=== PATIENT | female | born 1980 | race American Indian/Alaskan Native ===

== ENCOUNTER 2017-03-27 19:52 | Emergency (ER) | payer MEDICARE ==
[2017-03-27 20:23] VITALS: O2SAT 96
--- NOTE | 2017-03-27 20:49 | C.PDOC ---
History Of Present Illness Patient is a 37 y/o female, with a Hx of wheezing, who presents to the ED with a complaint of SOB. Patient reports symptoms worsened today and notes using an inhaler with no relief. No other physical complaints at this time. Time Seen by Provider: 03/27/17 20:48 Chief Complaint (Nursing): Respiratory Distress History Per: Patient History/Exam Limitations: no limitations Onset/Duration Of Symptoms: Hrs (today) Current Symptoms Are (Timing): Still Present Pain Scale Rating Of: 3 Recent travel outside of the [place]: No Additional History Per: Patient Past Medical History Reviewed: Historical Data, Nursing Documentation, Vital Signs Vital Signs: Last Vital Signs Temp 97.7 F 03/27/17 20:20 Pulse 108 H 03/27/17 20:20 Resp 16 03/27/17 20:53 BP 141/87 03/27/17 20:20 Pulse Ox 96 03/27/17 23:00 - Medical History PMH: Asthma Surgical History: No Surg Hx Family History: States: No Known Family Hx - Social History Hx Alcohol Use: No Hx Substance Use: No - Immunization History Hx Tetanus Toxoid Vaccination: No Hx Influenza Vaccination: No Hx Pneumococcal Vaccination: No Review Of Systems Constitutional: Negative for: Fever, Chills ENT: Negative for: Throat Pain Cardiovascular: Negative for: Chest Pain Respiratory: Positive for: Shortness of Breath, Wheezing Gastrointestinal: Negative for: Nausea Genitourinary: Negative for: Dysuria Musculoskeletal: Negative for: Back Pain Skin: Negative for: Rash Neurological: Negative for: Weakness Psych: Negative for: Anxiety Physical Exam - Physical Exam Appears: Well, Non-toxic, No Acute Distress Skin: Normal Color, Warm, Dry Head: Normacephalic Eye(s): bilateral: Normal Inspection Oral Mucosa: Moist Neck: Supple Chest: Symmetrical Cardiovascular: Rhythm Regular, No Murmur Respiratory: No Rales, No Rhonchi, No Stridor, Wheezing (scattered), Other ( speaking in complete sentences) Gastrointestinal/Abdominal: Soft, No Tenderness Back: Normal Inspection Pulses: Left Dorsalis Pedis: Normal, Right Dorsalis Pedis: Normal Neurological/Psych: Oriented x3, Normal Speech, Normal Cognition ED Course And Treatment O2 Sat by Pulse Oximetry: 96 Pulse Ox Interpretation: Normal Progress Note: Plan: Albuterol, Prednisone, and Nebulizer treatment administered. Reevaluation Time: 23:00 Reassessment Condition: Improved Disposition Counseled Patient/Family Regarding: Studies Performed, Diagnosis, Need For Followup, Rx Given - Disposition Referrals: [facility] [Outside] [facility] [Outside] Disposition: HOME/ ROUTINE Disposition Time: 20:48 Condition: FAIR Prescriptions: Albuterol HFA [Ventolin HFA 90 mcg/actuation (8 g)] 2 puff IH [id number] #1 puff Prednisone [Deltasone] 20 mg PO DAILY #5 tablet Instructions: Asthma (DC) Forms: [employer] (Malawian) - Clinical Impression Clinical Impression: Exacerbation of asthma - Scribe Statement The provider has reviewed the documentation as recorded by the Scribe Emily Gaspar All medical record entries made by the Scribe were at my direction and personally dictated by me. I have reviewed the chart and agree that the record accurately reflects my personal performance of the history, physical exam, medical decision making, and the department course for this patient. I have also personally directed, reviewed, and agree with the discharge instructions and disposition.
[2017-03-27] MEDS: Albuterol-Ipratrop 3 mg / 0.5 (3 ml) UD IH SCH ×3 (21:02→21:28)
[2017-03-27] MEDS ORDERED: Albuterol-Ipratrop 3 mg / 0.5 (3 ml) UD ONE ×2 (21:07→21:19)
[2017-03-27 23:03] VITALS: BP 125/79; PULSE 104; TEMP 97.9
[2017-03-27 23:08] VITALS: RESP 18
== END 2017-03-27 23:16 | disposition home or self-care (01) ==
LOC: C.ER 19:52
DX: J45.901 Unspecified asthma with (acute) exacerbation (principal)

== ENCOUNTER 2017-11-07 17:40 | Inpatient (IN) | payer MEDICARE ==
[2017-11-07] MEDS: Albuterol-Ipratrop 3 mg / 0.5 (3 ml) UD IH SCH ×2 (18:40→18:52)
[2017-11-07] MEDS ORDERED: Albuterol-Ipratrop 3 mg / 0.5 (3 ml) UD ONE (18:42)
[2017-11-07 20:11] LABS: BASO % 0.7 % (0.0-2.0); EOS # 0.1 K/uL (0.0-0.7); EOS % 1.5 % (0.0-4.0); HEMOGLOBIN 12.4 g/dL (11.0-16.0); LYMPH # 1.5 K/uL (1.0-4.3); LYMPH % 22.4 % (20.0-40.0); MEAN CELL VOLUME 78.2 fL (81.0-99.0); MEAN CORPUSCULAR HEMOGLOBIN 25.3 pg (27.0-31.0); MEAN CORPUSCULAR HGB CONC 32.4 g/dL (33.0-37.0); MEAN PLATELET VOLUME 10.5 fL (7.2-11.7); MONO # 0.5 K/uL (0.0-0.8); MONO % 7.7 % (0.0-10.0); NEUT # 4.5 K/uL (1.8-7.0); NEUT % 67.7 % (50.0-75.0); RBC 4.9 Mil/uL (3.80-5.20); RED CELL DISTRIBUTION WIDTH 15.2 % (11.5-14.5); WHITE BLOOD COUNT 6.6 K/uL (4.8-10.8)
[2017-11-07 20:20] LABS: SQUAMOUS EPITHIAL 7 /hpf (0-5); URINE BACTERIA RARE (<OCC); URINE BILIRUBIN NEGATIVE (NEGATIVE); URINE BLOOD NEGATIVE (NEGATIVE); URINE CLARITY Hazy (Clear); URINE COLOR Yellow (YELLOW); URINE GLUCOSE (UA) NORMAL (Normal); URINE LEUKOCYTE ESTERASE NEG Leu/uL (Negative); URINE PROTEIN NEGATIVE (NEGATIVE); URINE UROBILINOGEN NORMAL mg/dL (0.2-1.0)
[2017-11-07 20:22] LABS: HCG,QUALITATIVE URINE NEGATIVE (NEGATIVE)
[2017-11-07 20:24] LABS: GFR AFRICAN-AMERICAN > 60; GFR NON-AFRICAN AMERICAN > 60
[2017-11-07 20:25] LABS: INR 1.3
[2017-11-07 20:33] LABS: BARBITURATES, UR NEGATIVE (NEGATIVE); BENZODIAZEPINES, UR NEGATIVE (NEGATIVE); OPIATES, UR NEGATIVE (NEGATIVE); PHENCYCLIDINE, UR NEGATIVE (NEGATIVE)
[2017-11-07 20:37] LABS: B-TYPE NATRIURETIC PEPTIDE 4760 pg/mL (0-450)
[2017-11-07 20:42] LABS: ALB/GLOB RATIO 1.3 (1.0-2.1); ALBUMIN 4.1 g/dL (3.5-5.0); ALT/SGPT 120 U/L (9-52); AST/SGOT 95 U/L (14-36); BLOOD UREA NITROGEN 9 mg/dL (7-17)
--- NOTE | 2017-11-07 21:31 | C.PDOC ---
Time Seen by Provider: 11/07/17 18:16 Chief Complaint (Nursing): Shortness Of Breath History Per: Patient Onset/Duration Of Symptoms: Days (about 2 weeks) Current Symptoms Are (Timing): Still Present Exacerbating Factor(s): Laying Flat Current Respiratory Medications: See Home Med List Severity: Moderate Associated Symptoms: Productive Cough Additional History Per: Prior Records Past Medical History Reviewed: Historical Data, Nursing Documentation, Vital Signs Vital Signs: Last Vital Signs Temp 97.8 F 11/07/17 17:44 Pulse 108 H 11/07/17 21:25 Resp 22 11/07/17 21:25 BP 112/92 H 11/07/17 21:25 Pulse Ox 95 11/07/17 21:32 - Medical History PMH: Asthma Family History: States: Unknown Family Hx - Social History Hx Tobacco Use: No Hx Alcohol Use: Yes Hx Substance Use: No - Immunization History Hx Tetanus Toxoid Vaccination: No Hx Influenza Vaccination: No Hx Pneumococcal Vaccination: No Review Of Systems Except As Marked, All Systems Reviewed And Found Negative. Constitutional: Negative for: Fever Cardiovascular: Positive for: Orthopnea Respiratory: Positive for: Cough, Shortness of Breath, Sputum. Negative for: Hemoptysis Gastrointestinal: Negative for: Abdominal Pain Musculoskeletal: Negative for: Leg Pain Skin: Negative for: Rash Neurological: Negative for: Weakness, Numbness Physical Exam - Physical Exam Appears: Non-toxic, No Acute Distress Skin: Normal Color, Warm, Dry, No Rash Head: Atraumatic, Normacephalic Eye(s): bilateral: Normal Inspection, PERRL, EOMI Neck: Normal ROM, Supple Cardiovascular: Rhythm Regular Respiratory: No Accessory Muscle Use, Wheezing Gastrointestinal/Abdominal: Soft, No Tenderness Extremity: Normal ROM, No Calf Tenderness Neurological/Psych: Oriented x3, Normal Motor, Normal Sensation ED Course And Treatment - Laboratory Results Result Diagrams: 11/07/17 19:58 11/07/17 19:58 Lab Interpretation: Abnormal Interpretation Of Abnormal: Elevated BNP Urine POC: Negative ECG: Interpreted By Me, Viewed By Me ECG Rhythm: Sinus Tachycardia, PVC, Nonspecific Changes Rate From EC O2 Sat by Pulse Oximetry: 95 Pulse Ox Interpretation: Normal - Radiology CXR: Interpreted by Me, Viewed By Me CXR Interpretation: Yes: Cardiomegaly Progress - Interventions Interventions:: Observation, Oxygen - Medications Administered Oral: Aspirin, Corticosteriod Inhaled nebulized: Anticholinergic, Beta-2 agonist Intravenous: Diuretic - Data Reviewed Data Reviewed: Lab, Diagnostic imaging, EKG, Old records - Patient Status Patient status: Partially improved - Continuity of Care Discussed patient case with:: Patient, ED Nurse, On-call PMD-pt unassigned - Patient Plan Patient Plan: Admission, Telemetry Disposition Discussed With : León Stark Comment: He accepted pt on his service and gave admitting orders to the nurse. Doctor Will See Patient In The: Hospital Counseled Patient/Family Regarding: Studies Performed, Diagnosis - Disposition Disposition: HOSPITALIZED Disposition Time: 21:37 Condition: GUARDED - Clinical Impression Clinical Impression: New onset of congestive heart failure
--- NOTE | 2017-11-08 07:16 | CP.PCM.PN ---
Subjective - Date & Time of Evaluation Date of Evaluation: 11/08/17 Time of Evaluation: 07:16 - Subjective Subjective: Internal Medicine Progress Note - Dr Stark Service Patient seen and examined at bedside. Per nursing no acute events overnight. Patient was admitted for progressive shortness of breath. States that she has been experiencing wheezing, cough and right sided chest tightness after ambulating. Patient has been using her albuterol inhaler and nebulizer with minimal relief in symptoms. Currently patient is still short of breath, offers no other complaints at this time. Denies headaches, dizziness, cp, palpitations , abdominal pain, urinary symptoms. Objective - Vital Signs/Intake and Output Vital Signs (last 24 hours): Temp Pulse Resp BP Pulse Ox 98.1 F 94 H 18 116/70 97 11/08/17 04:00 11/08/17 06:01 11/08/17 06:01 11/08/17 06:01 11/08/17 06:01 - Medications Medications: Current Medications Aspirin (Ecotrin) 325 mg PO DAILY YANIRA Enalapril Maleate (Vasotec) 2.5 mg PO BID YANIRA - Labs Labs: 11/07/17 19:58 11/07/17 19:58 PT 14.0 SECONDS (9.7-12.2) H 11/07/17 19:58 INR 1.3 11/07/17 19:58 APTT 19 SECONDS (21-34) L 11/07/17 19:58 - Additional Findings Additional findings: - Constitutional Appears: Non-toxic, No Acute Distress - Head Exam Head Exam: ATRAUMATIC, NORMAL INSPECTION, NORMOCEPHALIC - Eye Exam Eye Exam: EOMI, Normal appearance - ENT Exam ENT Exam: Mucous Membranes Moist - Respiratory Exam Respiratory Exam: Wheezes, NORMAL BREATHING PATTERN - Cardiovascular Exam Cardiovascular Exam: Tachycardia, REGULAR RHYTHM, +S1, +S2 - GI/Abdominal Exam GI & Abdominal Exam: Normal Bowel Sounds, Soft. absent: Tenderness - Extremities Exam Extremities exam: Positive for: normal inspection. Negative for: pedal edema, tenderness - Neurological Exam Neurological exam: Alert, Oriented x3 - Psychiatric Exam Psychiatric exam: Normal Affect, Normal Mood - Skin Skin Exam: Intact, Normal Color, Warm Assessment and Plan - Assessment and Plan (Free Text) Assessment: A/P: Patient is a 37 year old female with past medical history of asthma, depression presented to the ED for shortness of breath, cough. Acute on Chronic Systolic Heart Failure -Stable, afebrile -Will monitor on telemetry -CXR showed severe cardiomegaly with mild pulmonary venous congestion; no active disease -EKG showed sinus tachycardia with occasional PVCs -Pro BNP on admission was 4760 -Echo showed EF 20-25%, dilated cardiomyopathy, official report pending -Patient for cardiac cath on Saturday with Dr Burnett -NPO after midnight on Saturday11/10/17 -Continue Aspirin 81mg PO daily -Started on Lasix 20mg IVP BID, Lopressor 12.5mg PO BID, Enalapril 2.5mg PO BID , Crestor 5mg PO HS -F/U HgA1C, lipid panel, TSH/Free T4 -UTOX negative -Patient for life vest evaluation -Cardiology on consult, help appreciated -Daily weights, Strict I/Os Asthma -Duonebs Q6H prn shortness of breath Elevated LFTs -AST/ALT: 95/120 -Acute Hepatitis panel is negative -Could be elevated secondary to venous congestion -Drinks 1-2 glasses of wine monthly, denies recent tylenol use -Continue to monitor, avoid nephrotoxic agents GI/DVT ppx: -Protonix 40mg IVP daily -Lovenox 40mg SC daily Plan discussed with Dr Lincoln Ochoa DO PGY-2
[2017-11-08 08:11] LABS: BASO % 0.3 % (0.0-2.0); EOS % 0.4 % (0.0-4.0); HEMOGLOBIN 12.1 g/dL (11.0-16.0); LYMPH # 0.9 K/uL (1.0-4.3); LYMPH % 10.2 % (20.0-40.0); MEAN CELL VOLUME 77.2 fL (81.0-99.0); MEAN CORPUSCULAR HEMOGLOBIN 25.8 pg (27.0-31.0); MEAN CORPUSCULAR HGB CONC 33.5 g/dL (33.0-37.0); MEAN PLATELET VOLUME 10.1 fL (7.2-11.7); MONO # 0.4 K/uL (0.0-0.8); MONO % 4.3 % (0.0-10.0); NEUT # 7.6 K/uL (1.8-7.0); NEUT % 84.8 % (50.0-75.0); NRBC % 0.1 % (0.0-2.0); RBC 4.69 Mil/uL (3.80-5.20); RED CELL DISTRIBUTION WIDTH 14.7 % (11.5-14.5); WHITE BLOOD COUNT 8.9 K/uL (4.8-10.8)
[2017-11-08 08:26] LABS: ALB/GLOB RATIO 1.3 (1.0-2.1); ALBUMIN 4.3 g/dL (3.5-5.0); ALT/SGPT 147 U/L (9-52); AST/SGOT 99 U/L (14-36); BLOOD UREA NITROGEN 11 mg/dL (7-17); GFR AFRICAN-AMERICAN > 60; GFR NON-AFRICAN AMERICAN > 60; HDL CHOLESTEROL 31 mg/dL (30-70)
--- NOTE | 2017-11-08 08:29 | RAD ---
HISTORY: COMPARISON: No prior. TECHNIQUE: Chest PA and lateral FINDINGS: LINES AND TUBES: None. LUNG AND PLEURA: The lungs are well inflated. There is mild pulmonary venous congestion. No pleural effusion or pneumothorax. HEART AND MEDIASTINUM: There is severe cardiomegaly. The hilar and mediastinal contours are within normal limits. SKELETAL STRUCTURES: The bony structures are within normal limits for the patient's age. VISUALIZED UPPER ABDOMEN: Normal. OTHER FINDINGS: None. IMPRESSION: No active pulmonary disease. Severe cardiomegaly and mild pulmonary venous congestion.
[2017-11-08 08:36] LABS: LDL CHOLESTEROL 116 mg/dL (0-129)
[2017-11-08] MEDS ORDERED: Aspirin 325 mg EC Tablets PO SCH (10:00)
[2017-11-08 11:25] LABS: HEPATITIS B SURFACE AG Negative (NEGATIVE)
[2017-11-08 11:31] LABS: HEPATITIS A IGM NEGATIVE (NEGATIVE); HEPATITIS B CORE AB NEGATIVE (NEGATIVE)
[2017-11-08 11:42] LABS: HEPATITIS C ANTIBODY NEGATIVE (NEGATIVE)
[2017-11-08] MEDS: Enoxaparin 40 mg Syringe SC SCH (14:17)
--- NOTE | 2017-11-08 15:04 | CP.PCM.CON ---
Addendum entered and electronically signed by Harper Atkinson 11/08/17 15:41 : Acute on Chronic Systolic CHF ECHO: dilated cardiomyopathy, Ejection Fraction: 20-25% start Lasix 20mg ivp BID ASA 81mg po daily Lopressor 12.5mg po BID hold if systolic <100, HR <60 Crestor 5mg po HS Enalapril 2.5mg po BID for cardiac cath on Saturday for life vest evaluation Original Note: <Harper Atkinson - Last Filed: 11/08/17 14:53> History of Present Illness - History of Present Illness History of Present Illness: Patient is 37 year old, female, with a past medical history of depression, asthma, and uveitis, who is being evaluated for complaints of shortness of breath with associated 8x post-tussive emesis. She describes that symptoms began to present the week of October 27, 2017 while she was in [place]. She began to experience wheezing, cough, and right sided chest tightness after walking a block. Symptoms were similar to her prior asthma exacerbations. Patient notes that humidity is a trigger for her asthma, so she was not concerned. She returned to [place] on November 03, 2017, and symptoms were not occurring as frequently, but have continued to occur. She has been using her rescue inhaler (2 puffs 6 times a day) and her nebulizer, but has not been experiencing relief like she normally does. Usually she only has to use her rescue inhaler once every two weeks. Symptoms worsened on November 05, 2017 in the evening when she describes gasping for air, having cough spasms, post-tussive vomiting, excessive drooling, and 8/ 10 mid-sternal/left sided chest tightness and pressure. Cough worsens with deep breaths and exertion, such as walking to the bathroom. Patient describes that she would have chest tightness, then would have a cough spasm and post-tussive emesis. Chest tightness would resolve after coughing, but it would feel like heavy chest pressure. She also felt extremely hot but denies diaphoresis, extremity numbness, tingling. This was extremely different than her prior asthma exacerbations, which prompted her to present to the ED. Cxray showed cardiomegaly. Patient notes that she has had imaging performed in the past, but has never been told that she had any abnormalities with her heart. She was admitted, and started on Lasix. She notes that cough and shortness of breath has persisted. Patient denies fever, chills, diarrhea, abdominal pain, loss of consciousness, lower extremity edema. No other acute complaints at this time. Pt states that in 2008, she began to notice floaters and debris in her eye. She also felt like her joints were locking. She was seen by her PCP, was diagnosed with RA and started on Methotrexate and steroids. She also was worked up for sarcoidosis. However, in 2009 she was told that her symptoms were due to uveitis and she did not have RA. She was given eye drops and prednisone for symptoms, however she has not taken prednisone in >2 years because it was not covered by insurance. 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) , Cataracts (2013, 2015 ) Social History: non-smoker, lives with smokers, 1 glass of wine 1-2 times per month, no drug use, lives with friends, employed Home Meds: nebulizer, rescue inhaler, 2 eye drops for uveitis but does not remember names, prednisone (has not taken for >2 months) Allergies: NKDA, seasonal Famhx: Maternal grandfather: CHF, renal failure, CABG, DM; Mother: HTN, Renal failure, CHF Review of Systems - Constitutional Constitutional: absent: Chills, Fever - EENT Eyes: Spots in Vision - Cardiovascular Cardiovascular: Chest Pain - Respiratory Respiratory: Cough, Dyspnea, Dyspnea on Exertion, Wheezing - Gastrointestinal Gastrointestinal: Abdominal Pain, Nausea, Vomiting. absent: Constipation, Diarrhea - Genitourinary Genitourinary: absent: Difficulty Urinating, Dysuria - Musculoskeletal Musculoskeletal: absent: Numbness, Stiffness, Tingling - Integumentary Integumentary: absent: Rash Past Patient History - Past Medical History & Family History Past Medical History?: Yes - Past Social History Smoking Status: Never Smoked - CARDIAC Hx Cardiac Disorders: No - PULMONARY Hx Respiratory Disorders: Yes Hx Asthma: Yes - NEUROLOGICAL Hx Neurological Disorder: No - HEENT Hx HEENT Problems: Yes Other/Comment: uveitis - RENAL Hx Chronic Kidney Disease: No - ENDOCRINE/METABOLIC Hx Endocrine Disorders: No - HEMATOLOGICAL/ONCOLOGICAL Hx Blood Disorders: No - INTEGUMENTARY Hx Dermatological Problems: No - MUSCULOSKELETAL/RHEUMATOLOGICAL Hx Musculoskeletal Disorders: No Hx Falls: No - GASTROINTESTINAL Hx Gastrointestinal Disorders: No - GENITOURINARY/GYNECOLOGICAL Hx Genitourinary Disorders: No - PSYCHIATRIC Hx Psychophysiologic Disorder: No Hx Substance Use: No (Denies) - SURGICAL HISTORY Hx Surgeries: Yes Hx Cataract Extraction: Yes (b/l) Hx Section: Yes (x1) Other/Comment: breast reduction. - ANESTHESIA Hx Anesthesia: Yes Hx Anesthesia Reactions: No Hx Malignant Hyperthermia: No Has any member of the family had a problem w/ anesthesia?: No Meds Allergies/Adverse Reactions: Allergies Allergy/AdvReac Type Severity Reaction Status Date / Time carrots Allergy Uncoded 11/07/17 17:50 - Medications Medications: Current Medications Albuterol/Ipratropium (Duoneb 3 Mg/0.5 Mg (3 Ml) Ud) 3 ml INH RQ6 PRN PRN Reason: Shortness of Breath Aspirin (Ecotrin) 325 mg PO DAILY [facility] Last Admin: 11/08/17 10:58 Dose: 325 mg Enalapril Maleate (Vasotec) 2.5 mg PO BID [facility] Last Admin: 11/08/17 10:58 Dose: 2.5 mg Enoxaparin Sodium (Lovenox) 40 mg SC DAILY [facility] Last Admin: 11/08/17 14:17 Dose: 40 mg Pantoprazole Sodium (Protonix Inj) 40 mg IVP DAILY [facility] Last Admin: 11/08/17 10:58 Dose: 40 mg Physical Exam - Constitutional Appears: Non-toxic, No Acute Distress - Head Exam Head Exam: ATRAUMATIC, NORMAL INSPECTION, NORMOCEPHALIC - Eye Exam Eye Exam: EOMI, Normal appearance - ENT Exam ENT Exam: Mucous Membranes Moist - Respiratory Exam Respiratory Exam: Wheezes, NORMAL BREATHING PATTERN - Cardiovascular Exam Cardiovascular Exam: Tachycardia, REGULAR RHYTHM, +S1, +S2 - GI/Abdominal Exam GI & Abdominal Exam: Normal Bowel Sounds, Soft. absent: Tenderness - Extremities Exam Extremities exam: Positive for: normal inspection. Negative for: pedal edema, tenderness - Neurological Exam Neurological exam: Alert, Oriented x3 - Psychiatric Exam Psychiatric exam: Normal Affect, Normal Mood - Skin Skin Exam: Intact, Normal Color, Warm Results - Vital Signs Recent Vital Signs: Last Vital Signs Temp 97.6 F 11/08/17 10:30 Pulse 111 H 11/08/17 14:20 Resp 18 11/08/17 14:20 BP 121/85 11/08/17 14:20 Pulse Ox 98 11/08/17 10:30 - Labs Result Diagrams: 11/08/17 08:07 11/08/17 08:07 Labs: Laboratory Results - last 24 hr 11/07/17 11/07/17 11/07/17 19:58 19:58 19:58 WBC 6.6 RBC 4.90 Hgb 12.4 Hct 38.3 MCV 78.2 L MCH 25.3 L MCHC 32.4 L RDW 15.2 H Plt Count 258 MPV 10.5 Neut % (Auto) 67.7 Lymph % (Auto) 22.4 Swift % (Auto) 7.7 Eos % (Auto) 1.5 Baso % (Auto) 0.7 Neut # (Auto) 4.5 Lymph # (Auto) 1.5 Swift # (Auto) 0.5 Eos # (Auto) 0.1 Baso # (Auto) 0.0 PT 14.0 H INR 1.3 APTT 19 L Sodium Potassium Chloride Carbon Dioxide Anion Gap BUN Creatinine Est GFR ( Amer) Est GFR (Non-Af Amer) Random Glucose Hemoglobin A1c Calcium Phosphorus Magnesium Total Bilirubin AST ALT Alkaline Phosphatase Troponin I NT-Pro-B Natriuret Pep Total Protein Albumin Globulin Albumin/Globulin Ratio Triglycerides Cholesterol LDL Cholesterol Direct HDL Cholesterol TSH 3rd Generation Urine Color Yellow Urine Clarity Hazy Urine pH 5.0 Ur Specific [place] 1.012 Urine Protein Negative Urine Glucose (UA) Normal Urine Ketones Trace Urine Blood Negative Urine Nitrate Negative Urine Bilirubin Negative Urine Urobilinogen Normal Ur Leukocyte Esterase Neg Urine WBC (Auto) 2 Urine RBC (Auto) < 1 Ur Squamous Epith Cells 7 H Urine Bacteria Rare Urine HCG, Qual Negative Urine Opiates Screen Urine Methadone Screen Ur Barbiturates Screen Ur Phencyclidine Scrn Ur Amphetamines Screen U Benzodiazepines Scrn U Oth Cocaine Metabols U Cannabinoids Screen Hepatitis A IgM Ab Hep Bs Antigen Hep B Core IgM Ab Hepatitis C Antibody 11/07/17 11/07/17 11/08/17 19:58 19:58 08:07 WBC 8.9 RBC 4.69 Hgb 12.1 Hct 36.2 MCV 77.2 L MCH 25.8 L MCHC 33.5 RDW 14.7 H Plt Count 243 MPV 10.1 Neut % (Auto) 84.8 H Lymph % (Auto) 10.2 L Swift % (Auto) 4.3 Eos % (Auto) 0.4 Baso % (Auto) 0.3 Neut # (Auto) 7.6 H Lymph # (Auto) 0.9 L Swift # (Auto) 0.4 Eos # (Auto) 0.0 Baso # (Auto) 0.0 PT INR APTT Sodium 139 Potassium 4.2 Chloride 107 Carbon Dioxide 21 L Anion Gap 15 BUN 9 Creatinine 0.9 Est GFR ( Amer) > 60 Est GFR (Non-Af Amer) > 60 Random Glucose 108 H Hemoglobin A1c Calcium 9.0 Phosphorus Magnesium Total Bilirubin 2.3 H AST 95 H ALT 120 H Alkaline Phosphatase 77 Troponin I 0.0290 NT-Pro-B Natriuret Pep 4760 H Total Protein 7.3 Albumin 4.1 Globulin 3.2 Albumin/Globulin Ratio 1.3 Triglycerides Cholesterol LDL Cholesterol Direct HDL Cholesterol TSH 3rd Generation Urine Color Urine Clarity Urine pH Ur Specific [place] Urine Protein Urine Glucose (UA) Urine Ketones Urine Blood Urine Nitrate Urine Bilirubin Urine Urobilinogen Ur Leukocyte Esterase Urine WBC (Auto) Urine RBC (Auto) Ur Squamous Epith Cells Urine Bacteria Urine HCG, Qual Urine Opiates Screen Negative Urine Methadone Screen Negative Ur Barbiturates Screen Negative Ur Phencyclidine Scrn Negative Ur Amphetamines Screen Negative U Benzodiazepines Scrn Negative U Oth Cocaine Metabols Negative U Cannabinoids Screen Negative Hepatitis A IgM Ab Hep Bs Antigen Hep B Core IgM Ab Hepatitis C Antibody 11/08/17 11/08/17 11/08/17 08:07 08:07 08:08 WBC RBC Hgb Hct MCV MCH MCHC RDW Plt Count MPV Neut % (Auto) Lymph % (Auto) Swift % (Auto) Eos % (Auto) Baso % (Auto) Neut # (Auto) Lymph # (Auto) Swift # (Auto) Eos # (Auto) Baso # (Auto) PT INR APTT Sodium 141 Potassium 3.8 Chloride 105 Carbon Dioxide 23 Anion Gap 18 BUN 11 Creatinine 0.9 Est GFR ( Amer) > 60 Est GFR (Non-Af Amer) > 60 Random Glucose 116 H Hemoglobin A1c 5.4 Calcium 9.0 Phosphorus 4.1 Magnesium 1.8 Total Bilirubin 2.5 H AST 99 H ALT 147 H D Alkaline Phosphatase 83 Troponin I NT-Pro-B Natriuret Pep Total Protein 7.7 Albumin 4.3 Globulin 3.3 Albumin/Globulin Ratio 1.3 Triglycerides 106 Cholesterol 164 LDL Cholesterol Direct 116 HDL Cholesterol 31 TSH 3rd Generation 0.90 Urine Color Urine Clarity Urine pH Ur Specific [place] Urine Protein Urine Glucose (UA) Urine Ketones Urine Blood Urine Nitrate Urine Bilirubin Urine Urobilinogen Ur Leukocyte Esterase Urine WBC (Auto) Urine RBC (Auto) Ur Squamous Epith Cells Urine Bacteria Urine HCG, Qual Urine Opiates Screen Urine Methadone Screen Ur Barbiturates Screen Ur Phencyclidine Scrn Ur Amphetamines Screen U Benzodiazepines Scrn U Oth Cocaine Metabols U Cannabinoids Screen Hepatitis A IgM Ab Negative Hep Bs Antigen Negative Hep B Core IgM Ab Negative Hepatitis C Antibody Negative Assessment & Plan - Assessment and Plan (Free Text) Assessment: SOB CHF exacerbation vs asthma exacerbation Pro BNP: 4760 Cxray: no active pulmonary disease, severe cardiomegaly and mild pulmonary venous congestion ECHO done today, f/u report Duonebs Lasix given in ED Transaminitis AST: 99 ALT: 147 hep panel negative HTN Enalapril 2.5mg po BID continue to monitor <Garo Burnett - Last Filed: 11/10/17 07:17> Meds - Medications Medications: Current Medications Albuterol/Ipratropium (Duoneb 3 Mg/0.5 Mg (3 Ml) Ud) 3 ml INH RQ6 PRN PRN Reason: Shortness of Breath Aspirin (Ecotrin) 81 mg PO DAILY [facility] Last Admin: 11/09/17 09:50 Dose: 81 mg Enalapril Maleate (Vasotec) 2.5 mg PO DAILY [facility] Enoxaparin Sodium (Lovenox) 40 mg SC DAILY [facility] Last Admin: 11/09/17 09:51 Dose: 40 mg Furosemide (Lasix) 20 mg IVP DAILY [facility] Last Admin: 11/09/17 09:50 Dose: 20 mg Metoprolol Tartrate (Lopressor) 12.5 mg PO BID [facility] Last Admin: 11/09/17 18:01 Dose: 12.5 mg Pantoprazole Sodium (Protonix Inj) 40 mg IVP DAILY [facility] Last Admin: 11/09/17 09:51 Dose: 40 mg Potassium Chloride (K-Dur 20 Meq Er Tab) 20 meq PO Q24H [facility] Last Admin: 11/09/17 13:12 Dose: 20 meq Rosuvastatin Calcium (Crestor) 5 mg PO HS [facility] Last Admin: 11/09/17 21:56 Dose: 5 mg Results - Vital Signs Recent Vital Signs: Last Vital Signs Temp 98.2 F 11/09/17 23:05 Pulse 108 H 11/10/17 01:14 Resp 20 11/09/17 23:05 BP 90/57 L 11/09/17 23:05 Pulse Ox 96 11/09/17 23:05 - Labs Result Diagrams: 11/09/17 11:31 11/09/17 11:31 Labs: Laboratory Results - last 24 hr 11/09/17 11/09/17 11/09/17 11:12 11:31 11:31 WBC 7.3 RBC 4.89 Hgb 12.7 Hct 37.7 MCV 77.2 L MCH 26.0 L MCHC 33.7 RDW 14.8 H Plt Count 282 MPV 10.6 Neut % (Auto) 65.6 Lymph % (Auto) 22.5 Swift % (Auto) 9.7 Eos % (Auto) 1.3 Baso % (Auto) 0.9 Neut # (Auto) 4.8 Lymph # (Auto) 1.6 Swift # (Auto) 0.7 Eos # (Auto) 0.1 Baso # (Auto) 0.1 Sodium 142 Potassium 3.4 L Chloride 103 Carbon Dioxide 25 Anion Gap 17 BUN 14 Creatinine 1.1 Est GFR ( Amer) > 60 Est GFR (Non-Af Amer) 56 POC Glucose (mg/dL) 117 H Random Glucose 112 H Calcium 8.7 11/09/17 16:28 WBC RBC Hgb Hct MCV MCH MCHC RDW Plt Count MPV Neut % (Auto) Lymph % (Auto) Swift % (Auto) Eos % (Auto) Baso % (Auto) Neut # (Auto) Lymph # (Auto) Swift # (Auto) Eos # (Auto) Baso # (Auto) Sodium Potassium Chloride Carbon Dioxide Anion Gap BUN Creatinine Est GFR ( Amer) Est GFR (Non-Af Amer) POC Glucose (mg/dL) 105 Random Glucose Calcium Assessment & Plan - Assessment and Plan (Free Text) Assessment: Patient seen and evaluated personally by me Admitted for acute systolic CHF Etiology unclear cardiac cath Saturday at 2pm NPO after breakfast Saturday Continue ACEI, B blockers and Lasix
[2017-11-09] MEDS: Enoxaparin 40 mg Syringe SC SCH (09:51)
[2017-11-09 11:39] LABS: BASO # 0.1 K/uL (0.0-0.2); BASO % 0.9 % (0.0-2.0); EOS # 0.1 K/uL (0.0-0.7); EOS % 1.3 % (0.0-4.0); HEMOGLOBIN 12.7 g/dL (11.0-16.0); LYMPH # 1.6 K/uL (1.0-4.3); LYMPH % 22.5 % (20.0-40.0); MEAN CELL VOLUME 77.2 fL (81.0-99.0); MEAN CORPUSCULAR HGB CONC 33.7 g/dL (33.0-37.0); MEAN PLATELET VOLUME 10.6 fL (7.2-11.7); MONO # 0.7 K/uL (0.0-0.8); MONO % 9.7 % (0.0-10.0); NEUT # 4.8 K/uL (1.8-7.0); NEUT % 65.6 % (50.0-75.0); RBC 4.89 Mil/uL (3.80-5.20); RED CELL DISTRIBUTION WIDTH 14.8 % (11.5-14.5); WHITE BLOOD COUNT 7.3 K/uL (4.8-10.8)
[2017-11-09 12:04] LABS: BLOOD UREA NITROGEN 14 mg/dL (7-17); CALCIUM 8.7 mg/dl (8.6-10.4); GFR AFRICAN-AMERICAN > 60; GFR NON-AFRICAN AMERICAN 56
[2017-11-09] MEDS: Potassium Chloride 20 mEq ER Tab PO SCH (13:12)
--- NOTE | 2017-11-10 07:18 | CP.PCM.PN ---
Subjective - Date & Time of Evaluation Date of Evaluation: 11/09/17 Time of Evaluation: 15:15 - Subjective Subjective: Patient seen and evaluated Breathing better No chest pain Review of Systems - Constitutional Constitutional: absent: Chills, Fever - EENT Eyes: Spots in Vision - Cardiovascular Cardiovascular: Chest Pain - Respiratory Respiratory: Cough, Dyspnea, Dyspnea on Exertion, Wheezing - Gastrointestinal Gastrointestinal: Abdominal Pain, Nausea, Vomiting. absent: Constipation, Diarrhea - Genitourinary Genitourinary: absent: Difficulty Urinating, Dysuria - Musculoskeletal Musculoskeletal: absent: Numbness, Stiffness, Tingling - Integumentary Integumentary: absent: Rash Physical Exam - Constitutional Appears: Non-toxic, No Acute Distress - Head Exam Head Exam: ATRAUMATIC, NORMAL INSPECTION, NORMOCEPHALIC - Eye Exam Eye Exam: EOMI, Normal appearance - ENT Exam ENT Exam: Mucous Membranes Moist - Respiratory Exam Respiratory Exam: Wheezes, NORMAL BREATHING PATTERN - Cardiovascular Exam Cardiovascular Exam: Tachycardia, REGULAR RHYTHM, +S1, +S2 - GI/Abdominal Exam GI & Abdominal Exam: Normal Bowel Sounds, Soft. absent: Tenderness - Extremities Exam Extremities exam: Positive for: normal inspection. Negative for: pedal edema, tenderness - Neurological Exam Neurological exam: Alert, Oriented x3 - Psychiatric Exam Psychiatric exam: Normal Affect, Normal Mood - Skin Skin Exam: Intact, Normal Color, Warm Objective - Vital Signs/Intake and Output Vital Signs (last 24 hours): Temp Pulse Resp BP Pulse Ox 98.2 F 108 H 20 90/57 L 96 11/09/17 23:05 11/10/17 01:14 11/09/17 23:05 11/09/17 23:05 11/09/17 23:05 Intake and Output: 11/10/17 11/10/17 06:59 18:59 Intake Total 1000 Output Total 450 Balance 550 - Medications Medications: Current Medications Albuterol/Ipratropium (Duoneb 3 Mg/0.5 Mg (3 Ml) Ud) 3 ml INH RQ6 PRN PRN Reason: Shortness of Breath Aspirin (Ecotrin) 81 mg PO DAILY [facility] Last Admin: 11/09/17 09:50 Dose: 81 mg Enalapril Maleate (Vasotec) 2.5 mg PO DAILY [facility] Enoxaparin Sodium (Lovenox) 40 mg SC DAILY [facility] Last Admin: 11/09/17 09:51 Dose: 40 mg Furosemide (Lasix) 20 mg IVP DAILY [facility] Last Admin: 11/09/17 09:50 Dose: 20 mg Metoprolol Tartrate (Lopressor) 12.5 mg PO BID [facility] Last Admin: 11/09/17 18:01 Dose: 12.5 mg Pantoprazole Sodium (Protonix Inj) 40 mg IVP DAILY [facility] Last Admin: 11/09/17 09:51 Dose: 40 mg Potassium Chloride (K-Dur 20 Meq Er Tab) 20 meq PO Q24H [facility] Last Admin: 11/09/17 13:12 Dose: 20 meq Rosuvastatin Calcium (Crestor) 5 mg PO HS [facility] Last Admin: 11/09/17 21:56 Dose: 5 mg - Labs Labs: 11/09/17 11:31 11/09/17 11:31 PT 14.0 SECONDS (9.7-12.2) H 11/07/17 19:58 INR 1.3 11/07/17 19:58 APTT 19 SECONDS (21-34) L 11/07/17 19:58 Assessment and Plan - Assessment and Plan (Free Text) Assessment: 1. Acute systolic CHF 2. HTN Continue VALDEMAR I, B blockers and Lasix DVT/GI prophylaxis Cardiac Cath Saturday 2pm NPO after breakfast on Saturday Follow daily electrolyte/Creatinine checks
[2017-11-10] MEDS: Albuterol-Ipratrop 3 mg / 0.5 (3 ml) UD INH PRN ×2 (08:26→21:02)
[2017-11-10 08:29] LABS: BASO # 0.1 K/uL (0.0-0.2); BASO % 1.3 % (0.0-2.0); EOS # 0.2 K/uL (0.0-0.7); EOS % 2.5 % (0.0-4.0); HEMOGLOBIN 12.1 g/dL (11.0-16.0); LYMPH % 31.4 % (20.0-40.0); MEAN CELL VOLUME 76.9 fL (81.0-99.0); MEAN CORPUSCULAR HEMOGLOBIN 25.9 pg (27.0-31.0); MEAN CORPUSCULAR HGB CONC 33.6 g/dL (33.0-37.0); MEAN PLATELET VOLUME 10.2 fL (7.2-11.7); MONO # 0.6 K/uL (0.0-0.8); MONO % 10.1 % (0.0-10.0); NEUT # 3.5 K/uL (1.8-7.0); NEUT % 54.7 % (50.0-75.0); NRBC % 0.1 % (0.0-2.0); RBC 4.66 Mil/uL (3.80-5.20); WHITE BLOOD COUNT 6.3 K/uL (4.8-10.8)
[2017-11-10] MEDS: Enoxaparin 40 mg Syringe SC SCH (09:14)
[2017-11-10 10:16] LABS: BLOOD UREA NITROGEN 12 mg/dL (7-17); CALCIUM 8.5 mg/dl (8.6-10.4); GFR AFRICAN-AMERICAN > 60; GFR NON-AFRICAN AMERICAN > 60
[2017-11-10] MEDS: Potassium Chloride 20 mEq ER Tab PO SCH (12:53)
--- NOTE | 2017-11-10 23:13 | CP.PCM.PN ---
Subjective - Date & Time of Evaluation Date of Evaluation: 11/10/17 Time of Evaluation: 13:05 - Subjective Subjective: Lasix and Lisinopril held today due to hypotension Spoke to RN No cardiac symptoms at present For Cath tomorrow NPO after breakfast except meds Objective - Vital Signs/Intake and Output Vital Signs (last 24 hours): Temp Pulse Resp BP Pulse Ox 97.8 F 113 H 20 91/66 L 98 11/10/17 15:01 11/10/17 21:00 11/10/17 15:01 11/10/17 21:00 11/10/17 15:01 Intake and Output: 11/10/17 11/11/17 18:59 06:59 Intake Total 800 Output Total 500 Balance 300 - Medications Medications: Current Medications Albuterol/Ipratropium (Duoneb 3 Mg/0.5 Mg (3 Ml) Ud) 3 ml INH RQ6 PRN PRN Reason: Shortness of Breath Last Admin: 11/10/17 21:02 Dose: 3 ml Aspirin (Ecotrin) 81 mg PO DAILY [facility] Last Admin: 11/10/17 09:14 Dose: 81 mg Enalapril Maleate (Vasotec) 2.5 mg PO DAILY [facility] Last Admin: 11/10/17 12:17 Dose: Not Given Enoxaparin Sodium (Lovenox) 40 mg SC DAILY [facility] Last Admin: 11/10/17 09:14 Dose: 40 mg Furosemide (Lasix) 20 mg IVP DAILY [facility] Last Admin: 11/10/17 12:16 Dose: Not Given Metoprolol Tartrate (Lopressor) 12.5 mg PO BID [facility] Last Admin: 11/10/17 17:23 Dose: 12.5 mg Pantoprazole Sodium (Protonix Inj) 40 mg IVP DAILY [facility] Last Admin: 11/10/17 09:14 Dose: 40 mg Potassium Chloride (K-Dur 20 Meq Er Tab) 20 meq PO Q24H [facility] Last Admin: 11/10/17 12:53 Dose: 20 meq Rosuvastatin Calcium (Crestor) 5 mg PO HS [facility] Last Admin: 11/10/17 21:18 Dose: 5 mg - Labs Labs: 11/10/17 08:11 11/10/17 08:11 PT 14.0 SECONDS (9.7-12.2) H 07/12/18 19:58 INR 1.3 11/07/17 19:58 APTT 19 SECONDS (21-34) L 11/07/17 19:58
--- NOTE | 2017-11-11 07:23 | CP.PCM.PN ---
Subjective - Date & Time of Evaluation Date of Evaluation: 11/11/17 Time of Evaluation: 07:23 - Subjective Subjective: Internal Medicine Progress Note - Dr Lincoln Marte Objective - Vital Signs/Intake and Output Vital Signs (last 24 hours): Temp Pulse Resp BP Pulse Ox 98.0 F 90 20 100/70 100 11/10/17 23:08 11/11/17 03:13 11/10/17 23:08 11/10/17 23:08 11/10/17 23:08 Intake and Output: 11/11/17 11/11/17 06:59 18:59 Intake Total 800 Output Total 500 Balance 300 - Medications Medications: Current Medications Albuterol/Ipratropium (Duoneb 3 Mg/0.5 Mg (3 Ml) Ud) 3 ml INH RQ6 PRN PRN Reason: Shortness of Breath Last Admin: 11/10/17 21:02 Dose: 3 ml Aspirin (Ecotrin) 81 mg PO DAILY [facility] Last Admin: 11/10/17 09:14 Dose: 81 mg Enalapril Maleate (Vasotec) 2.5 mg PO DAILY [facility] Last Admin: 11/10/17 12:17 Dose: Not Given Enoxaparin Sodium (Lovenox) 40 mg SC DAILY [facility] Last Admin: 11/10/17 09:14 Dose: 40 mg Furosemide (Lasix) 20 mg IVP DAILY [facility] Last Admin: 11/10/17 12:16 Dose: Not Given Metoprolol Tartrate (Lopressor) 12.5 mg PO BID [facility] Last Admin: 11/10/17 17:23 Dose: 12.5 mg Pantoprazole Sodium (Protonix Inj) 40 mg IVP DAILY [facility] Last Admin: 11/10/17 09:14 Dose: 40 mg Potassium Chloride (K-Dur 20 Meq Er Tab) 20 meq PO Q24H [facility] Last Admin: 11/10/17 12:53 Dose: 20 meq Rosuvastatin Calcium (Crestor) 5 mg PO HS [facility] Last Admin: 11/10/17 21:18 Dose: 5 mg - Labs Labs: 11/10/17 08:11 11/10/17 08:11 PT 14.0 SECONDS (9.7-12.2) H 11/07/17 19:58 INR 1.3 11/07/17 19:58 APTT 19 SECONDS (21-34) L 11/07/17 19:58
[2017-11-11 07:35] LABS: BASO % 0.6 % (0.0-2.0); EOS # 0.2 K/uL (0.0-0.7); EOS % 3.4 % (0.0-4.0); HEMOGLOBIN 11.9 g/dL (11.0-16.0); LYMPH # 1.7 K/uL (1.0-4.3); LYMPH % 26.9 % (20.0-40.0); MEAN CORPUSCULAR HEMOGLOBIN 25.9 pg (27.0-31.0); MEAN CORPUSCULAR HGB CONC 33.7 g/dL (33.0-37.0); MEAN PLATELET VOLUME 10.3 fL (7.2-11.7); MONO # 0.6 K/uL (0.0-0.8); MONO % 10.4 % (0.0-10.0); NEUT # 3.6 K/uL (1.8-7.0); NEUT % 58.7 % (50.0-75.0); NRBC % 0.1 % (0.0-2.0); RBC 4.6 Mil/uL (3.80-5.20); RED CELL DISTRIBUTION WIDTH 14.6 % (11.5-14.5); WHITE BLOOD COUNT 6.2 K/uL (4.8-10.8)
[2017-11-11 07:37] LABS: BLOOD UREA NITROGEN 14 mg/dL (7-17); CALCIUM 8.4 mg/dl (8.6-10.4); GFR AFRICAN-AMERICAN > 60; GFR NON-AFRICAN AMERICAN > 60
--- NOTE | 2017-11-11 07:50 | HP ---
HISTORY OF PRESENT ILLNESS: The patient presented to the hospital complaining of shortness of breath, weakness, fatigue. Patient . PHYSICAL EXAMINATION: GENERAL: The patient is awake, alert, oriented. VITAL SIGNS: Temperature 98, pulse 90. HEENT: Within normal limits. NECK: Supple. CHEST: Symmetrical. HEART: Regular. ABDOMEN: Soft. EXTREMITIES: No edema. Chest x-ray negative. The patient is to bed rest, echocardiogram, cardiology evaluation. León Stark MD
--- NOTE | 2017-11-11 07:59 | PN ---
DATE: 11/10/2017 The patient complaining of shortness of breath. He has been seen by electric milkers installer . León Stark MD
--- NOTE | 2017-11-11 09:21 | CP.PCM.PN ---
Subjective - Date & Time of Evaluation Date of Evaluation: 11/11/17 Time of Evaluation: :18 - Subjective Subjective: PGY2 Medicine Note for Dr. Stark Patient seen and examined this morning at bedside. No acute events overnight. Patient is stilling up smiling, conversing with the nursing staff. She is scheduled for a cardiac cath this afternoon. Patient states that her Mother and Grandfather both had CHF but as a result of CKD. She has never had problems with her heart and no one else in her family has cardiac issues. She is currently breathing comfortably on room air. She reports intermittent palpitations but otherwise has no complaints. Denies fevers, chills, nausea, vomiting, diarrhea, constipation, chest pain, SOB, abdominal pain, headaches, numbness or tingling. Objective - Vital Signs/Intake and Output Vital Signs (last 24 hours): Temp Pulse Resp BP Pulse Ox 98.2 F 107 H 20 87/63 L 100 11/11/17 08:00 11/11/17 08:00 11/11/17 08:00 11/11/17 08:00 11/11/17 08:00 Intake and Output: 11/11/17 11/11/17 06:59 18:59 Intake Total 800 0 Output Total 500 400 Balance 300 -400 - Medications Medications: Current Medications Albuterol/Ipratropium (Duoneb 3 Mg/0.5 Mg (3 Ml) Ud) 3 ml INH RQ6 PRN PRN Reason: Shortness of Breath Last Admin: 11/10/17 21:02 Dose: 3 ml Aspirin (Ecotrin) 81 mg PO DAILY [facility] Last Admin: 11/10/17 09:14 Dose: 81 mg Enalapril Maleate (Vasotec) 2.5 mg PO DAILY [facility] Last Admin: 11/10/17 12:17 Dose: Not Given Enoxaparin Sodium (Lovenox) 40 mg SC DAILY [facility] Last Admin: 11/10/17 09:14 Dose: 40 mg Furosemide (Lasix) 20 mg IVP DAILY [facility] Last Admin: 11/10/17 12:16 Dose: Not Given Metoprolol Tartrate (Lopressor) 12.5 mg PO BID [facility] Last Admin: 11/10/17 17:23 Dose: 12.5 mg Pantoprazole Sodium (Protonix Inj) 40 mg IVP DAILY [facility] Last Admin: 11/10/17 09:14 Dose: 40 mg Potassium Chloride (K-Dur 20 Meq Er Tab) 20 meq PO Q24H [facility] Last Admin: 11/10/17 12:53 Dose: 20 meq Rosuvastatin Calcium (Crestor) 5 mg PO HS [facility] Last Admin: 11/10/17 21:18 Dose: 5 mg - Labs Labs: 11/11/17 07:00 11/11/17 07:00 PT 14.0 SECONDS (9.7-12.2) H 11/07/17 19:58 INR 1.3 11/07/17 19:58 APTT 19 SECONDS (21-34) L 11/07/17 19:58 - Constitutional Appears: Non-toxic, No Acute Distress - Head Exam Head Exam: ATRAUMATIC, NORMOCEPHALIC - Eye Exam Eye Exam: EOMI, Normal appearance - ENT Exam ENT Exam: Mucous Membranes Moist - Neck Exam Neck Exam: absent: Lymphadenopathy - Respiratory Exam Respiratory Exam: Clear to Ausculation Bilateral, NORMAL BREATHING PATTERN. absent: Accessory Muscle Use, Chest Wall Tenderness, Decreased Breath Sounds, Rales, Rhonchi, Wheezes, Respiratory Distress - Cardiovascular Exam Cardiovascular Exam: REGULAR RHYTHM, +S1, +S2. absent: JVD, Murmur - GI/Abdominal Exam GI & Abdominal Exam: Soft. absent: Distended, Firm, Guarding, Rigid, Tenderness - Extremities Exam Extremities Exam: Normal Inspection. absent: Calf Tenderness, Pedal Edema - Neurological Exam Neurological Exam: Alert, Awake, CN II-XII Intact, Oriented x3 - Psychiatric Exam Psychiatric exam: Normal Affect, Normal Mood - Skin Skin Exam: Dry, Warm Assessment and Plan - Assessment and Plan (Free Text) Plan: Acute on Chronic Systolic Heart Failure -Cardiology consulted, Dr. Burnett * Scheduled for Cardiac Cath on 11/11 * Patient will need to follow up with the Heart Failure Clinic at [facility] upon discharge. -Stable, afebrile -Will monitor on telemetry -CXR showed severe cardiomegaly with mild pulmonary venous congestion; no active disease -EKG showed sinus tachycardia with occasional PVCs -Pro BNP on admission was 4760 -Trop neg x1 -Echo showed EF 20-25%, dilated cardiomyopathy, official report pending -Patient for cardiac cath on Saturday with Dr Burnett -Continue Aspirin 81mg PO daily -Started on Lasix 20mg IVP BID, Lopressor 12.5mg PO BID, Enalapril 2.5mg PO BID , Crestor 5mg PO HS -HgA1C 5.7 -lipid panel * LDL 116 * HDL 31 * Triglycer 106 -TSH 0.90 -UTOX negative -Patient for life vest evaluation -Daily weights, Strict I/Os Asthma -Duonebs Q6H prn shortness of breath Transaminitis -AST/ALT: 99/147 (11/08) -Acute Hepatitis panel is negative -Could be elevated secondary to venous congestion -Drinks 1-2 glasses of wine monthly, denies recent tylenol use -Continue to monitor, avoid nephrotoxic agents GI/DVT ppx -Protonix 40mg IVP daily -Lovenox 40mg SC daily Case discussed with and all medical management per Dr. Lincoln Stevens Hayley PGY2
[2017-11-11] MEDS: Enoxaparin 40 mg Syringe SC SCH (10:50)
[2017-11-11] MEDS: Potassium Chloride 20 mEq ER Tab PO SCH (14:10)
[2017-11-11] MEDS ORDERED: Lidocaine 2% MPF (5 ml) Inj ONE ×3 (15:23→15:37)
[2017-11-11] MEDS ORDERED: Midazolam 2 MG/2 ML VIAL ONE (15:29)
[2017-11-11] MEDS ORDERED: Iodixanol 320 MG/ML 200 ML BOTTLE IV ONE (15:29)
[2017-11-11] MEDS ORDERED: Iodixanol 320 MG/ML 100 ML BOTTLE IV ONE (15:47)
--- NOTE | 2017-11-11 16:14 | CP.PCM.PN ---
Subjective - Date & Time of Evaluation Date of Evaluation: 11/11/17 Time of Evaluation: 16:12 - Subjective Subjective: Patient s/p cath Normal coronaries EF 20% Dilated cardiomyopathy LifeVest VALDEMAR I, B Blockers, ASA Lasix OOB to chair after 10pm tonight Refer to Heart failure clinic at [facility] Objective - Vital Signs/Intake and Output Vital Signs (last 24 hours): Temp Pulse Resp BP Pulse Ox 98.2 F 107 H 20 94/67 L 100 11/11/17 08:00 11/11/17 08:00 11/11/17 08:00 11/11/17 11:15 11/11/17 08:00 Intake and Output: 11/11/17 11/11/17 06:59 18:59 Intake Total 800 0 Output Total 500 800 Balance 300 -800 - Medications Medications: Current Medications Albuterol/Ipratropium (Duoneb 3 Mg/0.5 Mg (3 Ml) Ud) 3 ml INH RQ6 PRN PRN Reason: Shortness of Breath Last Admin: 11/10/17 21:02 Dose: 3 ml Aspirin (Ecotrin) 81 mg PO DAILY [facility] Last Admin: 11/11/17 10:30 Dose: Not Given Enalapril Maleate (Vasotec) 2.5 mg PO DAILY [facility] Last Admin: 11/11/17 10:51 Dose: 2.5 mg Enoxaparin Sodium (Lovenox) 40 mg SC DAILY [facility] Last Admin: 11/11/17 10:50 Dose: 40 mg Furosemide (Lasix) 20 mg IVP DAILY [facility] Last Admin: 11/11/17 11:15 Dose: Not Given Metoprolol Tartrate (Lopressor) 12.5 mg PO BID [facility] Last Admin: 11/11/17 10:51 Dose: 12.5 mg Pantoprazole Sodium (Protonix Inj) 40 mg IVP DAILY [facility] Last Admin: 11/11/17 10:51 Dose: 40 mg Potassium Chloride (K-Dur 20 Meq Er Tab) 20 meq PO Q24H [facility] Last Admin: 11/11/17 14:10 Dose: Not Given - Labs Labs: 11/11/17 07:00 11/11/17 07:00 PT 14.0 SECONDS (9.7-12.2) H 11/07/17 19:58 INR 1.3 11/07/17 19:58 APTT 19 SECONDS (21-34) L 11/07/17 19:58
[2017-11-12 06:38] LABS: BASO # 0.1 K/uL (0.0-0.2); EOS # 0.2 K/uL (0.0-0.7); EOS % 3.6 % (0.0-4.0); HEMOGLOBIN 11.6 g/dL (11.0-16.0); LYMPH # 1.3 K/uL (1.0-4.3); LYMPH % 22.1 % (20.0-40.0); MEAN CELL VOLUME 76.5 fL (81.0-99.0); MEAN CORPUSCULAR HEMOGLOBIN 25.8 pg (27.0-31.0); MEAN CORPUSCULAR HGB CONC 33.7 g/dL (33.0-37.0); MEAN PLATELET VOLUME 10.2 fL (7.2-11.7); MONO # 0.6 K/uL (0.0-0.8); MONO % 10.3 % (0.0-10.0); NEUT # 3.7 K/uL (1.8-7.0); RBC 4.51 Mil/uL (3.80-5.20); RED CELL DISTRIBUTION WIDTH 15.1 % (11.5-14.5); WHITE BLOOD COUNT 5.9 K/uL (4.8-10.8)
[2017-11-12 06:48] LABS: BLOOD UREA NITROGEN 8 mg/dL (7-17); CALCIUM 8.5 mg/dl (8.6-10.4); GFR AFRICAN-AMERICAN > 60; GFR NON-AFRICAN AMERICAN > 60
--- NOTE | 2017-11-12 07:07 | CARD ---
APPROVED REPORT Date of service: 11/08/2017 EKG Measurement Heart [id number] <Conclusion> Sinus tachycardia with occasional premature ventricular complexes Possible Left atrial enlargement Septal infarct, age undetermined Abnormal ECG
--- NOTE | 2017-11-12 07:55 | CP.PCM.PN ---
Subjective - Date & Time of Evaluation Date of Evaluation: 11/12/17 Time of Evaluation: 07:50 - Subjective Subjective: PGY2 Medicine Note for Dr. Stark Patient seen and examined this morning at bedside. Patient s/p cardiac cath late yesterday afternoon. She tolerated the procedure well. This morning she was hypotensive but denies any symptoms currently as she is sitting up in bed this morning. She states she did not sleep well this morning and feels intermittent feelings of fatigue. She states her breathing is back to normal and she has no complaints at this time. Denies fevers, chills, nausea, vomiting , diarrhea, constipation, chest pain, shortness of breath, palpitations, abdominal pain, headaches, vision changes, numbness or tingling. Objective - Vital Signs/Intake and Output Vital Signs (last 24 hours): Temp Pulse Resp BP Pulse Ox 98.3 F 89 20 89/64 L 99 11/12/17 07:31 11/12/17 07:31 11/12/17 07:31 11/12/17 07:31 11/12/17 07:31 Intake and Output: 11/12/17 11/12/17 06:59 18:59 Intake Total 400 Balance 400 - Medications Medications: Current Medications Albuterol/Ipratropium (Duoneb 3 Mg/0.5 Mg (3 Ml) Ud) 3 ml INH RQ6 PRN PRN Reason: Shortness of Breath Last Admin: 11/10/17 21:02 Dose: 3 ml Aspirin (Ecotrin) 81 mg PO DAILY [facility] Last Admin: 11/11/17 10:30 Dose: Not Given Enalapril Maleate (Vasotec) 2.5 mg PO DAILY [facility] Last Admin: 11/11/17 10:51 Dose: 2.5 mg Enoxaparin Sodium (Lovenox) 40 mg SC DAILY [facility] Last Admin: 11/11/17 10:50 Dose: 40 mg Furosemide (Lasix) 20 mg IVP DAILY [facility] Last Admin: 11/11/17 11:15 Dose: Not Given Metoprolol Tartrate (Lopressor) 12.5 mg PO BID [facility] Last Admin: 11/11/17 19:16 Dose: Not Given Pantoprazole Sodium (Protonix Inj) 40 mg IVP DAILY [facility] Last Admin: 11/11/17 10:51 Dose: 40 mg Potassium Chloride (K-Dur 20 Meq Er Tab) 20 meq PO Q24H [facility] Last Admin: 11/11/17 14:10 Dose: Not Given - Labs Labs: 11/12/17 06:23 11/12/17 06:20 PT 14.0 SECONDS (9.7-12.2) H 11/07/17 19:58 INR 1.3 11/07/17 19:58 APTT 19 SECONDS (21-34) L 11/07/17 19:58 - Constitutional Appears: Non-toxic, No Acute Distress - Head Exam Head Exam: ATRAUMATIC, NORMOCEPHALIC - Eye Exam Eye Exam: EOMI, Normal appearance - ENT Exam ENT Exam: Mucous Membranes Moist - Neck Exam Neck Exam: absent: Lymphadenopathy - Respiratory Exam Respiratory Exam: Clear to Ausculation Bilateral, NORMAL BREATHING PATTERN. absent: Accessory Muscle Use, Decreased Breath Sounds, Rales, Rhonchi, Wheezes, Respiratory Distress - Cardiovascular Exam Cardiovascular Exam: REGULAR RHYTHM, +S1, +S2 Additional comments: Dressing from cardiac cath in R groin is c/d/i - GI/Abdominal Exam GI & Abdominal Exam: Soft. absent: Distended, Firm, Guarding, Rigid, Tenderness - Extremities Exam Extremities Exam: absent: Calf Tenderness, Pedal Edema - Neurological Exam Neurological Exam: Alert, Awake, CN II-XII Intact, Oriented x3 - Psychiatric Exam Psychiatric exam: Normal Affect, Normal Mood - Skin Skin Exam: Dry, Warm Assessment and Plan - Assessment and Plan (Free Text) Plan: Acute on Chronic Systolic Heart Failure - Cardiology consulted, Dr. Burnett * s/p Cardiac Cath on 11/11 * Normal coronaries * EF 20% * Dilated cardiomyopathy * Patient pending LifeVest evaluation * Consult Cardio EP, Dr. Ferrari * Non sustained runs of V Tach * Patient will need to follow up with the Heart Failure Clinic at [facility] upon discharge. - Stable, afebrile - Will monitor on telemetry - CXR showed severe cardiomegaly with mild pulmonary venous congestion; no active disease - EKG showed sinus tachycardia with occasional PVCs - Echo showed EF 20-25%, dilated cardiomyopathy, official report pending - Pro BNP on admission was 4760 - Trop neg x1 - HgA1C 5.7 - Lipid panel * LDL 116 * HDL 31 * Triglycer 106 - TSH 0.90 - UTOX negative - Daily weights, Strict I/Os - Meds * Aspirin 81mg PO daily * Lasix 20mg IVP BID * Lopressor 12.5mg PO BID * Enalapril 2.5mg PO BID - Stopped due to hypotension * Crestor 5mg PO HS Asthma - Duonebs Q6H prn shortness of breath Transaminitis - AST/ALT: 99/147 (11/08) - Acute Hepatitis panel is negative - Could be elevated secondary to venous congestion - Drinks 1-2 glasses of wine monthly, denies recent tylenol use - Continue to monitor, avoid nephrotoxic agents GI/DVT ppx - Protonix 40mg IVP daily - Lovenox 40mg SC daily DISPO: Patient can be discharged home once patient has LifeVest. Case discussed with and all medical management per Dr. Lincoln Stevens Hayley PGY2
[2017-11-12] MEDS: Enoxaparin 40 mg Syringe SC SCH (09:27)
--- NOTE | 2017-11-12 13:45 | CP.PCM.CON ---
History of Present Illness - History of Present Illness History of Present Illness: CARDIAC ELECTROPHYSIOLOGY CONSULT NOTE Reason for consult: ICD evaluation HPI: Patient is a 37 yo AA woman with history of asthma, depression, uveitis who presents with 2 weeks of exertional SOB associated with cough and chest pain. She was found to have nonischemic dilated CM with EF 15% by echo. Cardiac cath on 11/11/17 showed normal coronary arteries. Tele shows asymptomatic nonsustained VT. EP is now consulted by Dr. Burnett. Patient states SOB is slowly improving. No leg edema. 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) , Cataracts (2013, 2015 ) Social History: non-smoker, lives with smokers, 1 glass of wine 1-2 times per month, no drug use, lives with friends, employed Home Meds: nebulizer, rescue inhaler, 2 eye drops for uveitis but does not remember names, prednisone (has not taken for >2 months) Allergies: NKDA, seasonal Famhx: Maternal grandfather: CHF, renal failure, CABG, DM; Mother: HTN, Renal failure, CHF ROS: as described in HPI, otherwise negative Past Patient History - Past Medical History & Family History Past Medical History?: Yes - Past Social History Smoking Status: Never Smoked - CARDIAC Hx Cardiac Disorders: No - PULMONARY Hx Respiratory Disorders: Yes Hx Asthma: Yes - NEUROLOGICAL Hx Neurological Disorder: No - HEENT Hx HEENT Problems: Yes Other/Comment: uveitis - RENAL Hx Chronic Kidney Disease: No - ENDOCRINE/METABOLIC Hx Endocrine Disorders: No - HEMATOLOGICAL/ONCOLOGICAL Hx Blood Disorders: No - INTEGUMENTARY Hx Dermatological Problems: No - MUSCULOSKELETAL/RHEUMATOLOGICAL Hx Musculoskeletal Disorders: No Hx Falls: No - GASTROINTESTINAL Hx Gastrointestinal Disorders: No - GENITOURINARY/GYNECOLOGICAL Hx Genitourinary Disorders: No - PSYCHIATRIC Hx Psychophysiologic Disorder: No Hx Substance Use: No (Denies) - SURGICAL HISTORY Hx Surgeries: Yes Hx Cataract Extraction: Yes (b/l) Hx Section: Yes (x1) Other/Comment: breast reduction. - ANESTHESIA Hx Anesthesia: Yes Hx Anesthesia Reactions: No Hx Malignant Hyperthermia: No Has any member of the family had a problem w/ anesthesia?: No Meds Allergies/Adverse Reactions: Allergies Allergy/AdvReac Type Severity Reaction Status Date / Time carrots Allergy Uncoded 11/07/17 17:50 - Medications Medications: Current Medications Albuterol/Ipratropium (Duoneb 3 Mg/0.5 Mg (3 Ml) Ud) 3 ml INH RQ6 PRN PRN Reason: Shortness of Breath Last Admin: 11/10/17 21:02 Dose: 3 ml Aspirin (Ecotrin) 81 mg PO DAILY [facility] Last Admin: 11/12/17 09:26 Dose: 81 mg Enoxaparin Sodium (Lovenox) 40 mg SC DAILY [facility] Last Admin: 11/12/17 09:27 Dose: 40 mg Furosemide (Lasix) 20 mg IVP DAILY [facility] Last Admin: 11/12/17 09:27 Dose: 20 mg Metoprolol Tartrate (Lopressor) 12.5 mg PO BID [facility] Last Admin: 11/12/17 09:27 Dose: 12.5 mg Pantoprazole Sodium (Protonix Inj) 40 mg IVP DAILY [facility] Last Admin: 11/12/17 09:27 Dose: 40 mg Potassium Chloride (K-Dur 20 Meq Er Tab) 20 meq PO Q24H [facility] Last Admin: 11/11/17 14:10 Dose: Not Given Physical Exam - Constitutional Appears: Non-toxic - Head Exam Head Exam: ATRAUMATIC - Eye Exam Eye Exam: Normal appearance - ENT Exam ENT Exam: Mucous Membranes Moist - Respiratory Exam Respiratory Exam: Clear to Auscultation Bilateral - Cardiovascular Exam Cardiovascular Exam: REGULAR RHYTHM, +S1, +S2 - GI/Abdominal Exam GI & Abdominal Exam: Soft - Extremities Exam Extremities exam: Negative for: pedal edema - Neurological Exam Neurological exam: Oriented x3 - Psychiatric Exam Psychiatric exam: Normal Affect - Skin Skin Exam: Normal Color Results - Vital Signs Recent Vital Signs: Last Vital Signs Temp 98.3 F 11/12/17 07:31 Pulse 101 H 11/12/17 07:50 Resp 20 11/12/17 07:31 BP 102/64 11/12/17 09:27 Pulse Ox 99 11/12/17 07:31 - Labs Result Diagrams: 11/12/17 06:23 11/12/17 06:20 Labs: Laboratory Results - last 24 hr 11/12/17 11/12/17 06:20 06:23 WBC 5.9 RBC 4.51 Hgb 11.6 Hct 34.5 MCV 76.5 L MCH 25.8 L MCHC 33.7 RDW 15.1 H Plt Count 243 MPV 10.2 Neut % (Auto) 63.0 Lymph % (Auto) 22.1 [place] % (Auto) 10.3 H Eos % (Auto) 3.6 Baso % (Auto) 1.0 Neut # (Auto) 3.7 Lymph # (Auto) 1.3 [place] # (Auto) 0.6 Eos # (Auto) 0.2 Baso # (Auto) 0.1 Sodium 140 Potassium 3.8 Chloride 105 Carbon Dioxide 26 Anion Gap 13 BUN 8 Creatinine 1.0 Est GFR ( Amer) > 60 Est GFR (Non-Af Amer) > 60 Random Glucose 88 Calcium 8.5 L - Impressions Impression: Sinus rhythm, PVC, narrow QRS, NSST's Assessment & Plan - Assessment and Plan (Free Text) Assessment: 1. Newly diagnosed nonischemic dilated cardiomyopathy -- LVEF 15% 2. Normal coronary arteries -- by cath 11/11/17 3. Asymptomatic NSVT Plan: 1. Recommend LifeVest x 90 days with HF guideline directed medical therapy 2. If LVEF remains < 35% despite atleast 90 days of medical therapy, then ICD would be recommended 3. Medical therapy for HF per Dr. Burnett -- consider adding VALDEMAR-I and changing beta kathleen to carvedilol or Toprol XL 4. Recommend cardiac MRI as outpatient to rule out infiltrative disorders such as sarcoidosis, especially given patient's history of unexplained uveitis
[2017-11-12] MEDS: Potassium Chloride 20 mEq ER Tab PO SCH (13:53)
--- NOTE | 2017-11-12 22:59 | CP.PCM.PN ---
Subjective - Date & Time of Evaluation Date of Evaluation: 11/12/17 Time of Evaluation: 15:50 - Subjective Subjective: Patient seen and evaluated Breathing much better EP consult with Dr. Sequeira appreciated Objective - Vital Signs/Intake and Output Vital Signs (last 24 hours): Temp Pulse Resp BP Pulse Ox 98.3 F 111 H 18 96/68 L 100 11/12/17 15:00 11/12/17 17:13 11/12/17 15:00 11/12/17 17:13 11/12/17 15:00 Intake and Output: 11/12/17 11/13/17 18:59 06:59 Intake Total 800 Balance 800 - Medications Medications: Current Medications Albuterol/Ipratropium (Duoneb 3 Mg/0.5 Mg (3 Ml) Ud) 3 ml INH RQ6 PRN PRN Reason: Shortness of Breath Last Admin: 11/10/17 21:02 Dose: 3 ml Aspirin (Ecotrin) 81 mg PO DAILY [facility] Last Admin: 11/12/17 09:26 Dose: 81 mg Enoxaparin Sodium (Lovenox) 40 mg SC DAILY [facility] Last Admin: 11/12/17 09:27 Dose: 40 mg Furosemide (Lasix) 20 mg IVP DAILY [facility] Last Admin: 11/12/17 09:27 Dose: 20 mg Metoprolol Tartrate (Lopressor) 12.5 mg PO BID [facility] Last Admin: 11/12/17 17:12 Dose: 12.5 mg Pantoprazole Sodium (Protonix Ec Tab) 40 mg PO DAILY [facility] Potassium Chloride (K-Dur 20 Meq Er Tab) 20 meq PO Q24H [facility] Last Admin: 11/12/17 13:53 Dose: 20 meq - Labs Labs: 11/12/17 06:23 11/12/17 06:20 PT 14.0 SECONDS (9.7-12.2) H 11/07/17 19:58 INR 1.3 11/07/17 19:58 APTT 19 SECONDS (21-34) L 11/07/17 19:58
[2017-11-13 00:26] VITALS: RESP 20
--- NOTE | 2017-11-13 06:25 | CARDCATH ---
PROCEDURE DATE: 11/11/2017 PROCEDURES: 1. Left heart catheterization. 2. Coronary angiogram. CLINICAL INDICATIONS: 1. Dyspnea. 2. Acute systolic congestive heart failure. 3. Hypotension. REFERRING PHYSICIAN: León Stark MD. CONSULTING PHYSICIAN: 1. Petrona Sequeira MD. 2. Keyshawn Ferrari MD. PERFORMING PHYSICIAN: Garo Burnett MD. BRIEF CLINICAL HISTORY: Mariya Quach is a 37-year-old female admitted with acute systolic heart failure and hypotension. The patient is scheduled for cardiac catheterization as a part of workup for heart failure. After informed consent, the patient was prepped and draped in the usual sterile fashion. Lidocaine 2% was given in the right groin for local anesthesia. Using micropuncture technique, a 6-Greenlandic sheath was introduced into right common femoral artery. A 6 Green[place]ic JL4 diagnostic catheter engaged into left main coronary artery. Contrast injected and left coronary angiogram was done. A JR4 6-Green[place]ic diagnostic catheter engaged into right coronary artery. Contrast injected and right coronary angiogram was done. A 6-Green[place]ic pigtail catheter crossed into left ventricle across the aortic valve. LV end diastolic pressure measured. Contrast injected and LV angiogram was done. Then the cast was pulled back across the aortic valve. Gradient across the aortic valve was measured. The patient tolerated the procedure well. Radiological supervision and radiological interpretation of the procedure done. FINDINGS: 1. Left main coronary artery patent. 2. Radiant diagonal branches are patent. 3. Left circumflex is small but patent. 4. Right coronary artery is dominant and patent. 5. Dilated left ventricle with severe global hypokinesis. Ejection fraction approximately 15% to 20%. EDP is 35. No gradient across the aortic valve. IMPRESSION: 1. Normal coronaries. 2. Dilated nonischemic cardiomyopathy with severe global hypokinesis, approximate ejection fraction 15% to 20%. Garo Burnett MD
[2017-11-13] MEDS: Albuterol-Ipratrop 3 mg / 0.5 (3 ml) UD INH PRN (07:43)
[2017-11-13 08:45] LABS: BLOOD UREA NITROGEN 10 mg/dL (7-17); GFR AFRICAN-AMERICAN > 60; GFR NON-AFRICAN AMERICAN > 60
--- NOTE | 2017-11-13 09:00 | CP.PCM.PN ---
Subjective - Date & Time of Evaluation Date of Evaluation: 11/13/17 Time of Evaluation: 08:57 - Subjective Subjective: PGY2 Medicine Note for Dr. Stark Patient seen and examined this morning at bedside. No acute events overnight. Patient is scheduled to get fitted for her LifeVest later this morning. Patient is feeling well with no complaints. She is tolerating her diet and has no pain. Denies any chest pain, palpitations, shortness of breath or any other complaints at this time. Objective - Vital Signs/Intake and Output Vital Signs (last 24 hours): Temp Pulse Resp BP Pulse Ox 98.1 F 95 H 20 94/68 L 98 11/13/17 07:57 11/13/17 07:57 11/13/17 07:57 11/13/17 07:57 11/13/17 07:57 Intake and Output: 11/13/17 11/13/17 06:59 18:59 Intake Total 800 Balance 800 - Medications Medications: Current Medications Albuterol/Ipratropium (Duoneb 3 Mg/0.5 Mg (3 Ml) Ud) 3 ml INH RQ6 PRN PRN Reason: Shortness of Breath Last Admin: 11/13/17 07:43 Dose: 3 ml Aspirin (Ecotrin) 81 mg PO DAILY [facility] Last Admin: 11/12/17 09:26 Dose: 81 mg Enoxaparin Sodium (Lovenox) 40 mg SC DAILY [facility] Last Admin: 11/12/17 09:27 Dose: 40 mg Furosemide (Lasix) 20 mg IVP DAILY [facility] Last Admin: 11/12/17 09:27 Dose: 20 mg Metoprolol Tartrate (Lopressor) 12.5 mg PO BID [facility] Last Admin: 11/12/17 17:12 Dose: 12.5 mg Pantoprazole Sodium (Protonix Ec Tab) 40 mg PO DAILY [facility] Potassium Chloride (K-Dur 20 Meq Er Tab) 20 meq PO Q24H [facility] Last Admin: 11/12/17 13:53 Dose: 20 meq - Labs Labs: 11/12/17 06:23 11/13/17 08:11 PT 14.0 SECONDS (9.7-12.2) H 11/07/17 19:58 INR 1.3 11/07/17 19:58 APTT 19 SECONDS (21-34) L 11/07/17 19:58 - Constitutional Appears: Non-toxic, No Acute Distress - Head Exam Head Exam: ATRAUMATIC - Eye Exam Eye Exam: EOMI, Normal appearance - ENT Exam ENT Exam: Mucous Membranes Moist - Neck Exam Neck Exam: absent: Lymphadenopathy - Respiratory Exam Respiratory Exam: Clear to Ausculation Bilateral, NORMAL BREATHING PATTERN. absent: Accessory Muscle Use, Rales, Rhonchi, Wheezes, Respiratory Distress - Cardiovascular Exam Cardiovascular Exam: REGULAR RHYTHM, +S1, +S2 - GI/Abdominal Exam GI & Abdominal Exam: Soft, Normal Bowel Sounds. absent: Distended, Firm, Guarding, Rigid - Extremities Exam Extremities Exam: Normal Inspection. absent: Calf Tenderness, Pedal Edema, Tenderness - Neurological Exam Neurological Exam: Alert, Awake, CN II-XII Intact, Oriented x3 - Psychiatric Exam Psychiatric exam: Normal Affect, Normal Mood - Skin Skin Exam: Dry, Warm Assessment and Plan - Assessment and Plan (Free Text) Plan: Acute on Chronic Systolic Heart Failure - Cardiology consulted, Dr. Burnett * s/p Cardiac Cath on 11/11 * Normal coronaries * EF 15 - 20% * Dilated cardiomyopathy * Patient received LifeVest today. * Consult Cardio EP, Dr. Ferrari * Recommend LifeVest x 90 days with HF guideline directed medical therapy. * If LVEF remains < 35% despite atleast 90 days of medical therapy, then ICD would be recommended. * Medical therapy for HF per Dr. Burnett -- consider adding VALDEMAR-I and changing beta kathleen to carvedilol or Toprol XL. 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 * Patient will need to follow up with the Heart Failure Clinic at [facility] upon discharge. - Stable, afebrile - Will monitor on telemetry - CXR showed severe cardiomegaly with mild pulmonary venous congestion; no active disease - EKG showed sinus tachycardia with occasional PVCs - Echo showed EF 20-25%, dilated cardiomyopathy, official report pending - Pro BNP on admission was 4760 * repeat on 11/13/17: 1850 - Trop neg x1 - HgA1C 5.7 - Lipid panel * LDL 116 * HDL 31 * Triglycer 106 - TSH 0.90 - UTOX negative - Daily weights, Strict I/Os - Meds * Aspirin 81mg PO daily * Lasix 20mg IVP BID * Lopressor 12.5mg PO BID * Crestor 5mg PO HS * Started on Losartan 25mg PO daily - hold if systolic < 90 Asthma - Duonebs Q6H prn shortness of breath Transaminitis - AST/ALT: 99/147 (11/08) - Acute Hepatitis panel is negative - Could be elevated secondary to venous congestion - Drinks 1-2 glasses of wine monthly, denies recent tylenol use - Continue to monitor, avoid nephrotoxic agents GI/DVT ppx - Protonix 40mg IVP daily - Lovenox 40mg SC daily DISPO: Patient did not qualify for home O2. Dr. Burnett wanted to monitor for one more night due to start of Losartan and patient's multiple episodes of non- sustained Vtach. Patient received Life Vest today. Hopeful discharge tomorrow. Case discussed with and all medical management per Dr. Lincoln Stevens Hayley PGY2
[2017-11-13] MEDS: Enoxaparin 40 mg Syringe SC SCH (09:36)
[2017-11-13] MEDS: Pantoprazole 40 mg EC Tab PO SCH (09:36)
[2017-11-13 10:36] LABS: ABG ALLEN TEST PO; ARTERIAL BLOOD GAS HCO3 26.5 mmol/L (21-28); ARTERIAL BLOOD GAS HEMOGLOBIN 12.8 g/dL (11.7-17.4); ARTERIAL BLOOD GAS O2 SAT 99.1 % (95-98); ARTERIAL BLOOD GAS PCO2 34 mm/Hg (35-45); ARTERIAL BLOOD GAS PH 7.48 (7.35-7.45); ARTERIAL BLOOD GAS PO2 101 mm/Hg (80-100); ARTERIAL BLOOD GAS TCO2 26.3 mmol/L (22-28)
--- NOTE | 2017-11-13 11:20 | CARD ---
APPROVED REPORT Date of service: 11/07/2017 EKG Measurement Heart [id number] <Conclusion> Sinus tachycardia with occasional premature ventricular complexes Septal infarct, age undetermined Abnormal ECG
--- NOTE | 2017-11-13 11:26 | CARD ---
APPROVED REPORT Date of service: 11/08/2017 EXAM: Two-dimensional and M-mode echocardiogram with Doppler and color Doppler. INDICATION Dyspnea Congestive Heart Failure COPD 2D DIMENSIONS IVSd0.8 (0.7-1.1cm)LVDd6.5 (3.9-5.9cm) PWd0.7 (0.7-1.1cm)LVDs5.8 (2.5-4.0cm) FS (%) 9.9 %LVEF (%)21.3 (>50%) M-Mode DIMENSIONS Left Atrium (MM)3.39 (2.5-4.0cm)IVSd1.11 (0.7-1.1cm) Aortic Root2.63 (2.2-3.7cm)LVDd6.32 (4.0-5.6cm) Aortic Cusp Exc.1.84 (1.5-2.0cm)PWd0.81 (0.7-1.1cm) FS (%) 10 %LVDs5.71 (2.0-3.8cm) LVEF (%)21 (>50%) Mitral Valve MV E Jvhgzlvr132.4cm/sMV A Lkkfcneg92.9cm/sE/A ratio2.2 TDI E/Lateral E'0.0E/Medial E'0.0 Tricuspid Valve TR Peak Ikkocovn853su/sTR Peak [id number] LEFT VENTRICLE The Left Ventricle is severely dilated. There is normal left ventricular wall thickness. The Ejection Fraction is 20-25%. There is global hypokinesis of the left ventricle. Transmitral Doppler flow pattern is Grade II-pseudonormal filling dynamics. The left atrial pressure is mildly elevated. moderately increased la volume index. RIGHT VENTRICLE The right ventricle is normal size. Systolic function is mildly reduced. ATRIA The left atrium size is normal. The right atrium size is normal. suspiciouis for pfo. AORTIC VALVE The aortic valve is trileaflet. There is trace aortic regurgitation. MITRAL VALVE The mitral valve is normal in structure. Mitral regurgitation is moderate. TRICUSPID VALVE The tricuspid valve is normal in structure. There is mild to moderate tricuspid regurgitation. Right ventricular systolic pressure is estimated at 24 mmHg. There is no pulmonary hypertension. PULMONIC VALVE The pulmonary valve is normal in structure. There is mild pulmonic valvular regurgitation. GREAT VESSELS The aortic root is normal size. The IVC is normal in size and collapses >50% with inspiration. PERICARDIAL EFFUSION small posterior pericardial effusion noted. <Conclusion> The Left Ventricle is severely dilated. The Ejection Fraction is 20-25%. There is global hypokinesis of the left ventricle. Transmitral Doppler flow pattern is Grade II-pseudonormal filling dynamics. The left atrial pressure is mildly elevated. moderately increased la volume index. Systolic function is mildly reduced. suspiciouis for pfo. There is trace aortic regurgitation. Mitral regurgitation is moderate. There is mild to moderate tricuspid regurgitation. Right ventricular systolic pressure is estimated at 24 mmHg. There is no pulmonary hypertension. The aortic root is normal size. small posterior pericardial effusion noted.
--- NOTE | 2017-11-13 11:31 | CP.PCM.PN ---
Addendum entered and electronically signed by Harper Atkinson 11/13/17 12:42 : ejection fraction is 15-20% Original Note: <Harper Atkinson - Last Filed: 11/13/17 12:20> Subjective - Date & Time of Evaluation Date of Evaluation: 11/13/17 Time of Evaluation: 10:00 - Subjective Subjective: PGY2- Progress Note for Dr. Burnett Patient seen and examined at bedside and in no acute distress. Patient received life vest today. Patient is concerned about her tachycardia. Patient says she understands how to use the life vest and feels comfortable. Patient got a breathing treatment today. Patient denies any chest pain, abdominal pain, nausea , vomiting, constipation, or diarrhea. Objective - Vital Signs/Intake and Output Vital Signs (last 24 hours): Temp Pulse Resp BP Pulse Ox 98.1 F 104 H 20 102/68 98 11/13/17 07:57 11/13/17 09:35 11/13/17 07:57 11/13/17 09:36 11/13/17 07:57 Intake and Output: 11/13/17 11/13/17 06:59 18:59 Intake Total 800 Balance 800 - Medications Medications: Current Medications Aspirin (Ecotrin) 81 mg PO DAILY [facility] Last Admin: 11/13/17 09:35 Dose: 81 mg Enoxaparin Sodium (Lovenox) 40 mg SC DAILY [facility] Last Admin: 11/13/17 09:36 Dose: 40 mg Furosemide (Lasix) 20 mg IVP DAILY [facility] Last Admin: 11/13/17 09:36 Dose: 20 mg Losartan Potassium (Cozaar) 25 mg PO DAILY [facility] Metoprolol Tartrate (Lopressor) 12.5 mg PO BID [facility] Last Admin: 11/13/17 09:36 Dose: 12.5 mg Pantoprazole Sodium (Protonix Ec Tab) 40 mg PO DAILY [facility] Last Admin: 11/13/17 09:36 Dose: 40 mg Potassium Chloride (K-Dur 20 Meq Er Tab) 20 meq PO Q24H [facility] Last Admin: 11/12/17 13:53 Dose: 20 meq - Labs Labs: 11/12/17 06:23 11/13/17 08:11 PT 14.0 SECONDS (9.7-12.2) H 07/12/18 19:58 INR 1.3 11/07/17 19:58 APTT 19 SECONDS (21-34) L 11/07/17 19:58 - Additional Findings Additional findings: - Constitutional Appears: Non-toxic, No Acute Distress - Head Exam Head Exam: ATRAUMATIC, NORMOCEPHALIC - Eye Exam Eye Exam: EOMI, Normal appearance - ENT Exam ENT Exam: Mucous Membranes Moist - Neck Exam Neck Exam: absent: Lymphadenopathy - Respiratory Exam Respiratory Exam: Clear to Ausculation Bilateral, NORMAL BREATHING PATTERN. absent: Accessory Muscle Use, Chest Wall Tenderness, Decreased Breath Sounds, Rales, Rhonchi, Wheezes, Respiratory Distress - Cardiovascular Exam Cardiovascular Exam: REGULAR RHYTHM, +S1, +S2. absent: JVD, Murmur - GI/Abdominal Exam GI & Abdominal Exam: Soft. absent: Distended, Firm, Guarding, Rigid, Tenderness - Extremities Exam Extremities Exam: Normal Inspection. absent: Calf Tenderness, Pedal Edema - Neurological Exam Neurological Exam: Alert, Awake, CN II-XII Intact, Oriented x3 - Psychiatric Exam Psychiatric exam: Normal Affect, Normal Mood - Skin Skin Exam: Dry, Warm Assessment and Plan - Assessment and Plan (Free Text) Assessment: Acute on Chronic Systolic CHF ECHO: dilated cardiomyopathy, Ejection Fraction: 20-25% Pro BNP: 4760 Cxray: no active pulmonary disease, severe cardiomegaly and mild pulmonary venous congestion start Lasix 20mg ivp BID Cardiac Cath on 11/11: Normal coronaries, EF 20%, Dilated cardiomyopathy meds: ASA 81mg po daily Lopressor 12.5mg po BID hold if systolic <100, HR <60 Lasix 20mg ivp q daily Losartan 25mg po daily added on 11/13 hold if systolic < 90 life vest received today Patient will need to follow up with the Heart Failure Clinic at [facility] in [place] upon discharge. Patient will need a follow up Echo in 3 months and to be evaluated by Fabby Moore Discussed with Dr. Burnett <Garo Burnett - Last Filed: 11/13/17 21:22> Objective - Vital Signs/Intake and Output Vital Signs (last 24 hours): Temp Pulse Resp BP Pulse Ox 98.2 F 106 H 20 88/58 L 97 11/13/17 15:26 11/13/17 19:45 11/13/17 15:26 11/13/17 17:14 11/13/17 15:26 - Medications Medications: Current Medications Aspirin (Ecotrin) 81 mg PO DAILY [facility] Last Admin: 11/13/17 09:35 Dose: 81 mg Enoxaparin Sodium (Lovenox) 40 mg SC DAILY [facility] Last Admin: 11/13/17 09:36 Dose: 40 mg Furosemide (Lasix) 20 mg IVP DAILY [facility] Last Admin: 11/13/17 09:36 Dose: 20 mg Losartan Potassium (Cozaar) 25 mg PO DAILY [facility] Last Admin: 11/13/17 12:25 Dose: 25 mg Metoprolol Tartrate (Lopressor) 12.5 mg PO BID [facility] Last Admin: 11/13/17 17:13 Dose: Not Given Pantoprazole Sodium (Protonix Ec Tab) 40 mg PO DAILY [facility] Last Admin: 11/13/17 09:36 Dose: 40 mg Potassium Chloride (K-Dur 20 Meq Er Tab) 20 meq PO Q24H [facility] Last Admin: 11/13/17 13:08 Dose: 20 meq - Labs Labs: 11/12/17 06:23 11/13/17 08:11 PT 14.0 SECONDS (9.7-12.2) H 11/07/17 19:58 INR 1.3 11/07/17 19:58 APTT 19 SECONDS (21-34) L 11/07/17 19:58 Assessment and Plan - Assessment and Plan (Free Text) Assessment: Patient seen and evaluated personally by [place] Plan of care d/w the biomedical engineering professor and as documented D/C Statin. Not indicated at this time ProBNP improved to 1850 from 4600
[2017-11-13] MEDS: Potassium Chloride 20 mEq ER Tab PO SCH (13:08)
[2017-11-13 13:14] LABS: B-TYPE NATRIURETIC PEPTIDE 1850 pg/mL (0-450)
[2017-11-14 07:56] VITALS: TEMP 98.5; O2SAT 98
[2017-11-14 08:12] LABS: ALB/GLOB RATIO 1.1 (1.0-2.1); ALBUMIN 3.7 g/dL (3.5-5.0); ALT/SGPT 50 U/L (9-52); AST/SGOT 19 U/L (14-36); BLOOD UREA NITROGEN 12 mg/dL (7-17); CALCIUM 8.9 mg/dl (8.6-10.4); GFR AFRICAN-AMERICAN > 60; GFR NON-AFRICAN AMERICAN > 60
--- NOTE | 2017-11-14 09:41 | CP.PCM.PN ---
Subjective - Date & Time of Evaluation Date of Evaluation: 11/14/17 Time of Evaluation: 09:40 - Subjective Subjective: PGY2 Medicine Note for Dr. Stark Patient seen and examined this morning at bedside. No acute events overnight. Patient reports that she needed to stop the LifeVest from shocking her last night. She reports no symptoms and states that she feels normal. She is hopeful to go home today. Patient has no complaints at this time. Denies fevers, chills , nausea, vomiting, diarrhea, constipation, chest pain, shortness of breath, palpitations, abdominal pain, numbness, tingling, vision changes, headaches, lightheadedness or dizziness. Objective - Vital Signs/Intake and Output Vital Signs (last 24 hours): Temp Pulse Resp BP Pulse Ox 98.5 F 97 H 20 90/62 L 98 11/14/17 07:00 11/14/17 07:00 11/14/17 07:00 11/14/17 07:00 11/14/17 07:00 Intake and Output: 11/14/17 11/14/17 06:59 18:59 Intake Total 700 Balance 700 - Medications Medications: Current Medications Aspirin (Ecotrin) 81 mg PO DAILY [facility] Last Admin: 11/13/17 09:35 Dose: 81 mg Enoxaparin Sodium (Lovenox) 40 mg SC DAILY [facility] Last Admin: 11/13/17 09:36 Dose: 40 mg Furosemide (Lasix) 20 mg IVP DAILY [facility] Last Admin: 11/13/17 09:36 Dose: 20 mg Losartan Potassium (Cozaar) 25 mg PO DAILY [facility] Last Admin: 11/13/17 12:25 Dose: 25 mg Metoprolol Tartrate (Lopressor) 12.5 mg PO BID [facility] Last Admin: 11/13/17 17:13 Dose: Not Given Pantoprazole Sodium (Protonix Ec Tab) 40 mg PO DAILY [facility] Last Admin: 11/13/17 09:36 Dose: 40 mg Potassium Chloride (K-Dur 20 Meq Er Tab) 20 meq PO Q24H [facility] Last Admin: 11/13/17 13:08 Dose: 20 meq - Labs Labs: 11/12/17 06:23 11/14/17 07:37 PT 14.0 SECONDS (9.7-12.2) H 11/07/17 19:58 INR 1.3 11/07/17 19:58 APTT 19 SECONDS (21-34) L 11/07/17 19:58 - Constitutional Appears: Non-toxic, No Acute Distress - Head Exam Head Exam: ATRAUMATIC, NORMOCEPHALIC - Eye Exam Eye Exam: Normal appearance - ENT Exam ENT Exam: Mucous Membranes Moist - Neck Exam Neck Exam: absent: Lymphadenopathy - Respiratory Exam Respiratory Exam: Clear to Ausculation Bilateral, NORMAL BREATHING PATTERN. absent: Accessory Muscle Use, Rales, Rhonchi, Wheezes, Respiratory Distress - Cardiovascular Exam Cardiovascular Exam: Tachycardia, +S1, +S2 - GI/Abdominal Exam GI & Abdominal Exam: Soft, Normal Bowel Sounds. absent: Distended, Firm, Guarding, Rigid, Tenderness - Extremities Exam Extremities Exam: absent: Calf Tenderness, Pedal Edema - Neurological Exam Neurological Exam: Alert, Awake, Oriented x3 - Psychiatric Exam Psychiatric exam: Normal Affect, Normal Mood - Skin Skin Exam: Dry, Warm Assessment and Plan - Assessment and Plan (Free Text) Plan: New Onset Acute on Chronic Systolic Heart Failure - Cardiology consulted, Dr. Burnett * s/p Cardiac Cath on 11/11 * Normal coronaries * EF 15 - 20% * Dilated cardiomyopathy * Patient received LifeVest today. * Consult Cardio EP, Dr. Ferrari * Recommend LifeVest x 90 days with HF guideline directed medical therapy. * If LVEF remains < 35% despite atleast 90 days of medical therapy, then ICD would be recommended. * Medical therapy for HF per Dr. Burnett -- consider adding VALDEMAR-I and changing beta kathleen to carvedilol or Toprol XL. 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 * Patient will need to follow up with the Heart Failure Clinic at [facility] upon discharge. - Stable, afebrile - Will monitor on telemetry - CXR showed severe cardiomegaly with mild pulmonary venous congestion; no active disease - EKG showed sinus tachycardia with occasional PVCs - Echo showed EF 20-25%, dilated cardiomyopathy, official report pending - Pro BNP on admission was 4760 * repeat on 11/13/17: 1850 - Trop neg x1 - HgA1C 5.7 - Lipid panel * LDL 116 * HDL 31 * Triglycer 106 - TSH 0.90 - UTOX negative - Daily weights, Strict I/Os - Meds * Aspirin 81mg PO daily * Lasix 20mg IVP BID - discontinued * Lopressor 12.5mg PO BID * Started on Losartan 25mg PO daily - hold if systolic < 90 Asthma - Duonebs Q6H prn shortness of breath Transaminitis (resolved) - AST/ALT: - Acute Hepatitis panel is negative - Could be elevated secondary to venous congestion - Drinks 1-2 glasses of wine monthly, denies recent tylenol use - Continue to monitor, avoid nephrotoxic agents GI/DVT ppx - Protonix 40mg IVP daily - Lovenox 40mg SC daily DISPO: Patient discharged home on 11/14/17 with the following instructions. Patient is to be discharged home per Dr. Stark Patient has newly diagnosed systolic congestive heart failure. 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 Patient is to follow up with her primary care physician within one week of discharge. Patient is to follow up with Dr. Burnett (Cardiology) in his office within two weeks of discharge. Please call and schedule an appointment. Patient is to follow up with Dr. Petrona Sequeira (Cardio EP) within 3 to 4 weeks of discharge. Please call and schedule an appointment. * Contact info has been given to the patient by Dr. Burnett and his staff. Patient is to follow up with the Heart Failure Clinic at [facility] in [place] upon discharge. Please call and schedule an appointment. [address] [address] Patient is to wear LifeVest continuously. Please contact Dr. Burnett for any questions or concerns. Patient is to take her medications as prescribed. * Aspirin 81mg PO daily * Lopressor 12.5mg PO BID * Losartan 25mg PO daily - hold if feeling lightheaded/dizzy If patient experiences any new or worsening symptoms, please go directly to the nearest emergency room. Case discussed with and all medical management per Dr. Lincoln Stevens Hayley PGY2
[2017-11-14] MEDS: Enoxaparin 40 mg Syringe SC SCH (10:24)
[2017-11-14 10:31] VITALS: BP 102/68; PULSE 107
[2017-11-14] MEDS: Pantoprazole 40 mg EC Tab PO SCH (10:31)
--- NOTE | 2017-11-14 11:28 | CP.PCM.PN ---
<Harper Atkinson - Last Filed: 11/14/17 11:20> Subjective - Date & Time of Evaluation Date of Evaluation: 11/14/17 Time of Evaluation: 10:00 - Subjective Subjective: PGY2- Progress Note for Dr. Burnett Patient seen and examined at bedside and in no acute distress. Patient has no complaints. Patient denies chest pain, shortness of breath, abdominal pain, nausea, vomiting, constipation, diarrhea. Objective - Vital Signs/Intake and Output Vital Signs (last 24 hours): Temp Pulse Resp BP Pulse Ox 98.5 F 107 H 20 102/68 98 11/14/17 07:00 11/14/17 10:30 11/14/17 07:00 11/14/17 10:30 11/14/17 07:00 Intake and Output: 11/14/17 11/14/17 06:59 18:59 Intake Total 700 Balance 700 - Medications Medications: Current Medications Aspirin (Ecotrin) 81 mg PO DAILY [facility] Last Admin: 11/14/17 10:31 Dose: 81 mg Enoxaparin Sodium (Lovenox) 40 mg SC DAILY [facility] Last Admin: 11/14/17 10:24 Dose: 40 mg Losartan Potassium (Cozaar) 25 mg PO DAILY [facility] Last Admin: 11/14/17 10:30 Dose: 25 mg Metoprolol Tartrate (Lopressor) 12.5 mg PO BID [facility] Last Admin: 11/14/17 10:31 Dose: 12.5 mg Pantoprazole Sodium (Protonix Ec Tab) 40 mg PO DAILY [facility] Last Admin: 11/14/17 10:31 Dose: 40 mg Potassium Chloride (K-Dur 20 Meq Er Tab) 20 meq PO Q24H [facility] Last Admin: 11/13/17 13:08 Dose: 20 meq - Labs Labs: 11/12/17 06:23 11/14/17 07:37 PT 14.0 SECONDS (9.7-12.2) H 11/07/17 19:58 INR 1.3 11/07/17 19:58 APTT 19 SECONDS (21-34) L 11/07/17 19:58 - Additional Findings Additional findings: - Constitutional Appears: Non-toxic, No Acute Distress - Head Exam Head Exam: ATRAUMATIC, NORMOCEPHALIC - Eye Exam Eye Exam: EOMI, Normal appearance - ENT Exam ENT Exam: Mucous Membranes Moist - Neck Exam Neck Exam: absent: Lymphadenopathy - Respiratory Exam Respiratory Exam: Clear to Ausculation Bilateral, NORMAL BREATHING PATTERN. absent: Accessory Muscle Use, Chest Wall Tenderness, Decreased Breath Sounds, Rales, Rhonchi, Wheezes, Respiratory Distress - Cardiovascular Exam Cardiovascular Exam: REGULAR RHYTHM, +S1, +S2. absent: JVD, Murmur - GI/Abdominal Exam GI & Abdominal Exam: Soft. absent: Distended, Firm, Guarding, Rigid, Tenderness - Extremities Exam Extremities Exam: Normal Inspection. absent: Calf Tenderness, Pedal Edema - Neurological Exam Neurological Exam: Alert, Awake, CN II-XII Intact, Oriented x3 - Psychiatric Exam Psychiatric exam: Normal Affect, Normal Mood - Skin Skin Exam: Dry, Warm Assessment and Plan - Assessment and Plan (Free Text) Assessment: Acute on Chronic Systolic CHF ECHO: dilated cardiomyopathy, Ejection Fraction: 15-20% Pro BNP: 4760, decreased to 1850 on 11/13 Cxray: no active pulmonary disease, severe cardiomegaly and mild pulmonary venous congestion Cardiac Cath on 11/11: Normal coronaries, EF 20%, Dilated cardiomyopathy meds: ASA 81mg po daily Lopressor 12.5mg po BID hold if systolic <100, HR <60, patient to stay on BID instead of long acting daily due to hypotension Losartan 25mg po daily added on 11/13 hold if systolic < 90 life vest received yesterday, patient wearing comfortably Patient to be discharged today Patient will need to follow up with the Heart Failure Clinic at [facility] Patient will need a follow up Echo in 3 months and to be evaluated by Fabby Moore in 3 - [address] Burnett <Garo Burnett - Last Filed: 11/14/17 22:04> Objective - Vital Signs/Intake and Output Vital Signs (last 24 hours): Temp Pulse Resp BP Pulse Ox 98.5 F 107 H 20 102/68 98 11/14/17 07:00 11/14/17 10:30 11/14/17 07:00 11/14/17 10:30 11/14/17 07:00 - Labs Labs: 11/12/17 06:23 11/14/17 07:37 PT 14.0 SECONDS (9.7-12.2) H 11/07/17 19:58 INR 1.3 11/07/17 19:58 APTT 19 SECONDS (21-34) L 11/07/17 19:58 Assessment and Plan - Assessment and Plan (Free Text) Assessment: Patient seen and evaluated personally by me Plan of d/w the biomedical engineering supervisor and as documented
[2017-11-14] MEDS: Potassium Chloride 20 mEq ER Tab PO SCH (12:47)
== END 2017-11-14 13:06 | disposition home or self-care (01) | DRG 287 ==
LOC: C.ER 17:40 → C.9E 21:38 → C.5S 11-08 09:59 → C.6T 11-08 10:01 → C.5S 11-08 10:09
PROVIDERS: ADMIT Internal Medicine Pulmonary Disease; ATTEND Internal Medicine Pulmonary Disease
PROC: 4A023N7 Measurement of Cardiac Sampling and Pressure, Left Heart, Percutaneous Approach (ICD-10-PCS; principal; 2017-11-11)
PROC: B2151ZZ Fluoroscopy of Left Heart using Low Osmolar Contrast (ICD-10-PCS; 2017-11-11)
PROC: B2111ZZ Fluoroscopy of Multiple Coronary Arteries using Low Osmolar Contrast (ICD-10-PCS; 2017-11-11)
DX: I11.0 Hypertensive heart disease with heart failure (principal); I50.23 Acute on chronic systolic (congestive) heart failure; I42.0 Dilated cardiomyopathy; I47.2 Ventricular tachycardia; I49.3 Ventricular premature depolarization; J45.909 Unspecified asthma, uncomplicated; H20.9 Unspecified iridocyclitis; Z79.82 Long term (current) use of aspirin